=== PATIENT | male | born 1955 | race Caucasian/White ===

== ENCOUNTER 2017-01-30 13:32 | Inpatient (IN) ==
[2017-01-30] MEDS ORDERED: Naloxone 0.4 MG/ML INJ IVP PRN (18:13)
[2017-01-30] MEDS ORDERED: Acetaminophen 325 MG TABLET PO PRN (18:13)
[2017-01-30] MEDS ORDERED: Ondansetron 4 MG/2 ML VIAL IVP PRN (18:13)
[2017-01-30] MEDS ORDERED: *HR* Morphine 2 MG/ML SYRINGE IVP PRN (18:13)
--- NOTE | 2017-01-30 18:31 | Internal Med History&Physical ---
Date of Encounter: 01/30/17 Time of Encounter: 17:30 Assessment and Plan (1) Atrial fibrillation with rapid ventricular response Current visit: Yes Status: Acute New onset supraventricular arrhythmia. Review of EKG shows somewhat irregular tachycardia with ?aberrant conduction, responded to 10mg IV Cardizem push in the ER with conversion to NSR, but reverted to RVR and has been started on IV Cardizem drip; continue for now with titration to maintain HR below 110. Restart home dose of Metoprolol. Patient is currently in and out of sinus rhythm ,. Continue Telemetry monitoring and cycle Troponins. Echocardiogram from December 2016 shows EF 40-45%, mildly dilated LV and LA, global LV hypokinesis with regional variations. Will hold off on anticoagulation at this time in light of ongoing issues with anemia. Cardiology consult. Reviewed records from [facility] where patient was hospitalized on due to respiratory acidosis and failure, requiring intubation, lactic acidosis, shock requiring vasopressors, severe anemia (Hb dropped from 7.9 to 6.5 and he received PRBC transfusion). All of this improved and he was extubated , was recommended EGD/Colonoscopy by GI, and he left [facility] wanting to f/up as outpatient with GI. (2) Anemia Current visit: Yes Status: Chronic Previous iron profile c/w iron deficiency anemia; according to previous notes, he underwent EGD, Colonoscopy, capsule endoscopy, RBC nuclear scan with no source of GI bleed identified. Patient may benefit from Hematology evaluation. Hb is currently stable, around 8.5; Continue ferrous sulfate supplements. Qualifiers: Anemia type: iron deficiency Qualified Code(s): D50.9 - Iron deficiency anemia, unspecified (3) BPH (benign prostatic hyperplasia) Current visit: Yes Status: Chronic continue Flomax and Proscar; Qualifiers: Lower urinary tract symptom presence: symptoms present Lower urinary tract symptom detail: unspecified Qualified Code(s): N40.1 - Benign prostatic hyperplasia with lower urinary tract symptoms (4) CHF (congestive heart failure) Current visit: Yes Status: Chronic continue beta sung and diuretics and low dose ACEI; monitor BP closely; Qualifiers: Congestive heart failure type: combined Congestive heart failure chronicity : chronic Qualified Code(s): I50.42 - Chronic combined systolic (congestive) and diastolic (congestive) heart failure (5) COPD (chronic obstructive pulmonary disease) Current visit: Yes Status: Chronic Noted to have mild wheezing; continue Symbicort, scheduled bronchodilators and supplemental O2, noted to be on 4L/min NC at home; Qualifiers: COPD type: unspecified COPD Qualified Code(s): J44.1 - Chronic obstructive pulmonary disease with (acute) exacerbation (6) HTN (hypertension) Current visit: Yes Status: Chronic Qualifiers: Hypertension type: essential hypertension Qualified Code(s): I10 - Essential (primary) hypertension (7) CAD (coronary artery disease) Current visit: Yes Status: Chronic h/o- stents in the past; continue Plavix, beta sung and statin; Qualifiers: Coronary Disease-Associated Artery/Lesion type: [place] artery [place] vs. transplanted heart: [place] heart Associated angina: without angina Qualified Code(s): I25.10 - Atherosclerotic heart disease of [place] coronary artery without angina pectoris (8) Abdominal aortic aneurysm Current visit: Yes Status: Chronic Qualifiers: Presence of rupture: without rupture Qualified Code(s): I71.4 - Abdominal aortic aneurysm, without rupture (9) Tobacco abuse Current visit: Yes Status: Chronic Smoking cessation discussed, patient reports trying to cut down but not motivated to quit smoking at this time; start Nicotine transdermal patch; Internal Medicine - H&P: HPI Chief complaint: SOB Admitted From: Emergency Dept Plans for Post Hospital Care: Home History of present illness: Mr. Romo is a 61 year old male with h/o- CHF, COPD on home O2, was sent from [place] ER for evaluation of new onset atrial fibrillation. Patient is not a good historian, unable to report specific details regarding his complaints and medical history, which is obtained from review of previous medical records. Patient was at his routine pain management appointment earlier today where he had sudden onset of diaphoresis, dizziness and feeling sick. No syncope, palpitations, chest pain, vomiting reported. He did have some associated shortness of breath, no cough or wheezing per patient. Of note, he was found down at home last Saturday, when he was intubated and air lifted to [facility], where he was extubated and subsequently signed out AMA. Past Med Surg Social Fam HX - Past Medical History Medical history: aortic aneurysm, cardiomyopathy, CHF, COPD, coronary artery disease, GI bleed, hyperlipidemia, hypertension, myocardial infarction, other Psychiatric history: no psych history - Past Surgical History Surgical History: angioplasty/stent - Social History Smoking Status: Current every day smoker Packs per day: 1 Smokeless Tobacco Status: No Alcohol use: none Drug use: none Occupational status: disabled Current living situation: Home Activity Level: Independent ambulation Recent Out of Country Travel Within the Last 8 Weeks: No - Family History Father Family Member Ethnicity: Non- Living Status: Cause of : HEART ATTACK Hx Family Cardiac Disorders: Yes Hx Family Respiratory Disorders: No Hx Family Cancer: No Hx Family GI Disorders: No Hx Family Endocrine Disorder: No Hx Family Neuromuscular Disorders: No Hx Family Neurologic Disorders: No Hx Family HEENT Disorders: No Hx Family Autoimmune Disorders: No Mother Family Member Ethnicity: Non- Living Status: Cause of : HEART ATTACK Hx Family Cardiac Disorders: Yes Hx Family Respiratory Disorders: Yes (emphesyma) Hx Family Cancer: No Hx Family GI Disorders: No Hx Family Endocrine Disorder: Yes Hx Family Neuromuscular Disorders: No Hx Family Neurologic Disorders: No Hx Family HEENT Disorders: No Hx Family Autoimmune Disorders: No Internal Medicine - H&P: Meds Albuterol Sulfate [Ventolin Hfa] 2 puff IH Q4HR PRN 01/30/17 [History] Atorvastatin [Lipitor] 40 mg PO HS 01/30/17 [History] Cetirizine HCl [Zyrtec] 10 mg PO DAILY 01/30/17 [History] Clopidogrel [Plavix] 75 mg PO DAILY 01/30/17 [History] DULoxetine [Cymbalta] 30 mg PO DAILY 01/30/17 [History] Ferrous Sulfate [Iron] 325 mg PO TID 01/30/17 [History] Finasteride [Proscar] 5 mg PO DAILY 01/30/17 [History] Fluticasone/Salmeterol [Advair 500-50 Diskus] 1 each IH BID 01/30/17 [History] Guaifenesin [Mucinex] 600 mg PO BID 01/30/17 [History] Ipratropium/Albuterol Neb [Duoneb] 3 ml IH Q6HR 01/30/17 [History] Lisinopril 2.5 mg PO DAILY 01/30/17 [History] Metoprolol Succinate 100 mg PO DAILY 01/30/17 [History] Omeprazole 20 mg PO DAILY 01/30/17 [History] Oxycodone HCl 10 mg PO Q4H PRN 01/30/17 [History] Oxygen 1 each .ROUTE AD 01/30/17 [History] Pregabalin [Lyrica] 100 mg PO BID 01/30/17 [History] Primidone [Mysoline] 250 mg PO BID 01/30/17 [History] Roflumilast [Daliresp] 500 mcg PO DAILY 01/30/17 [History] Ropinirole HCl [Requip] 2 mg PO HS 01/30/17 [History] Spironolactone [Aldactone] 12.5 mg PO BID 01/30/17 [History] Tamsulosin [Flomax] 0.8 mg PO DAILY 01/30/17 [History] Tizanidine HCl [Zanaflex] 4 mg PO BID 01/30/17 [History] Allergies No Known Allergies Allergy (Verified 01/06/17 21:32) All Systems PM: A 10-system review of systems was performed and is negative for pertinent findings except as documented above in the HPI. - Constitutional Constitutional: no chills, no fever(s), no night sweats - EENT Eyes: no change in vision, no discharge, no pain, no photophobia Ears: no ear discharge, no ear pain, no tinnitus Nose, mouth and throat: no dysphagia, no nasal discharge, no neck pain, no sore throat - Cardiovascular Cardiovascular ROS IM: lightheadedness, no chest pain, no diaphoresis, no dyspnea, no palpitations, no syncope - Respiratory Respiratory: dyspnea on exertion - Gastrointestinal Gastrointestinal: nausea, no abdominal pain, no diarrhea, no hematemesis, no hematochezia, no melena, no vomiting - Musculoskeletal Musculoskeletal ROS IM: no numbness, no tingling - Integumentary Integumentary IM: no rash, no unusual bruising - Neurological Neurological ROS: no confusion, no convulsions, no focal weakness, no numbness, no tingling, no tremor(s) - Hematologic/Lymphatic Hematologic/Lymphatic: no easy bruising - Constitutional Vitals: Temp Pulse Resp BP Pulse Ox 98.1 F 72 16 117/78 100 01/30/17 15:15 01/30/17 16:28 01/30/17 16:28 01/30/17 16:28 01/30/17 16:28 General appearance: Present: A&O X 3, answers questions appropriately (unable to report complete medical history) - Respiratory Respiratory exam: Present: decreased breath sounds (B/L decreased air entry), wheezes (end-expiratory wheezing B/L posterior lay). Absent: accessory muscle use, rales, rhonchi - Cardiovascular Cardiovascular exam: Present: irregular rhythm, +S1, +S2. Absent: diastolic murmur, gallop, rubs, systolic murmur - GI/Abdominal GI/Abdominal exam: Present: normal bowel sounds, soft, no peritoneal signs. Absent: distended, tenderness - Extremities Exam Extremities exam: Present: full ROM, pedal edema (trace ankle and lower leg edema), warm, radial pulses palpable and symetrical. Absent: calf tenderness, cyanotic - Neurological Exam Neurological exam: Present: CN II-XII intact, oriented X3, no focal deficits. Absent: pronater drift, facial droop, speech deficit - Skin Skin exam: Present: dry, intact Internal Med - H&P Results - Labs CBC & Chem 7: 01/31/17 00:29 01/31/17 00:29 - EKG Data -: EKG Interpreted by Myself Rate: tachycardia (initial EKG with atrial flutter with RVR at 168bpm, PVCs, multiple premature SV complexes)
[2017-01-30 20:05] LABS: Chol/HDL Ratio 2.8 (0-4.9)
[2017-01-30] MEDS: Budesonide/Formoterol 160/4.5 MDI IH SCH (20:13)
[2017-01-30] MEDS: Ipratropium/Albuterol Neb 3 ML IH SCH ×2 (20:13→23:38)
[2017-01-30] MEDS: Pregabalin 50 MG CAPSULE PO SCH (20:52)
[2017-01-30] MEDS: tiZANidine 4 MG TABLET PO SCH (20:52)
[2017-01-30] MEDS ORDERED: rOPINIRole 1 MG TABLET PO SCH (21:00)
[2017-01-31 00:52] LABS: Basophils % 0.2 %; Hemoglobin 8.3 g/dL (12.9-16.9); Platelet Count 166 K/mcL (140-400)
[2017-01-31 00:54] LABS: Eosinophils # 0.1 K/mcL (0.0-0.6); Eosinophils % 1.3 %; Hematocrit 29.7 % (37.5-50.1); Immature Granulocytes % 0.8 % (0-4); Immature Platelets 13.2 % (1.1-6.1); Lymphocytes # 0.9 K/mcL (0.6-4.6); Lymphocytes % 16.6 %; Mean Corpuscular HGB Conc 27.9 g/dL (31.6-35.5); Mean Corpuscular Hemoglobin 23.7 pg (28.0-33.3); Mean Corpuscular Volume 84.9 fL (83.0-100.0); Mean Platelet Volume 12.9 fL (9.4-12.4); Monocytes # 0.5 K/mcL (0.0-1.3); Monocytes % 10.1 %; Neutrophils # 3.7 K/mcL (1.6-8.9); Nucleated Red Blood Cells 0.6 /100 WBC (0); Red Cell Distribution Width 23.1 % (11.5-14.5)
[2017-01-31 01:03] LABS: BUN/Creatinine Ratio 14 (6-26); Blood Urea Nitrogen 11 mg/dL (8-26); Calcium 8.2 mg/dL (8.6-10.8); Carbon Dioxide 37 mEq/L (19-29); Chloride 103 mEq/L (98-109); Glucose 160 mg/dL (70-99); Osmolality,Calculated 301 (280-300); Potassium 3.8 mEq/L (3.5-4.5); Sodium 144 mEq/L (136-145); eGFR For African Americans > 60 (> 60); eGFR For Non-African Americans > 60 (> 60)
[2017-01-31 01:24] LABS: Anisocytosis 3+ (Not Present); Microcytosis Present (Not Present)
[2017-01-31 01:25] LABS: Platelet Estimate Normal (Normal)
[2017-01-31] MEDS: Ipratropium/Albuterol Neb 3 ML IH SCH ×2 (04:24→07:45)
[2017-01-31] MEDS: Budesonide/Formoterol 160/4.5 MDI IH SCH (07:45)
[2017-01-31] MEDS ORDERED: (Roflumilast [Daliresp] 500 MCG) PO SCH (09:00)
[2017-01-31] MEDS ORDERED: Finasteride 5 MG TABLET PO SCH (09:00)
[2017-01-31] MEDS ORDERED: Ipratropium/Albuterol Neb 3 ML IH PRN (09:34)
[2017-01-31] MEDS: tiZANidine 4 MG TABLET PO SCH (09:39)
[2017-01-31] MEDS: *HR* OxyCODONE Immed Rel 5 MG TABLET PO PRN ×3 (09:40→16:52)
[2017-01-31] MEDS: Pregabalin 50 MG CAPSULE PO SCH (09:40)
--- NOTE | 2017-01-31 12:23 | Cardiology Consult Note ---
Date of Encounter: 01/31/17 Time of Encounter: 10:30 Assessment and Plan (1) Paroxysmal a-fib Current Visit: Yes Status: Acute Patient seen to have PAF on telemetry. No previous history. He is asymptomatic. Initial EKG reviewed with Dr. Thorpe. Tachyarrythmia with HR 168 bpm. 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 Resolved with IV cardizem bolus. Repeat EKG shows SR with PAC with RBBB. Telemetry review shows NSR with PAC. Runs of SVT and periods of PAF also seen. Currently SR with PVC. Recent holter monitor 12/2016- showed SR with frequent PAC and small brief runs of NSVT, longest being 5 beats. TTE 01/07/17- EF 40-45%. Global and segmental wall motion variations. No significant valvular disease. Check TSH. Continue beta-sung. Switch back to metoprolol succinate from metoprolol tartrate. Hold lisinopril if needed to allow room for rate controlling medications. In regards to anticoagulation he is not a good candidate due to history of anemia requiring blood transfusion. Most recent blood transfusion was [place]/25/17 [place] [facility] GI work-up was recommended at that time but was not completed. Recommend starting asa when felt to be safe from a GI standpoint. (2) Elevated troponin I level Current Visit: No Status: Acute Mild flat troponin elevation. Demand ischemia in the setting of tachy arrhythmia. (3) Cardiomyopathy, ischemic Current Visit: No Status: Acute H/o ICMP. EF 40-45% on last TTE. [facility] 01/12/15- patent stent in th LCX artery. 100% stenosis in the dRCA, 89% stenosis in the prox-mid RCA. Unsuccessful attempt at PCI to STRAINER TENDER of RCA. Currently euvolemic. Change metoprolol tartrate back to metoprolol succinate. Currently on zestril. Low sodium diet, Strict I&O, and daily weights. Continue asa, statin and bb. Discussion w patient/family: The assessment and plan as outlined above was discussed with the patient and/or family members who expressed understanding and agreement. All questions were answered. Thank you for involving us in the care of your patient. Please call with any questions. History of Present Illness Consult date: 01/31/17 Requesting physician: Juanita Irwin Consult reason: atrial fibrillation/ atrial tachycardia Chief complaint: weakness, diaphoresis History of present illness: Mr. Romo is a 61 year old male with a history of CAD s/p PCI, ischemic cardiomyoapthy EF 45%, COPD on home O2, and chronic anemia who presents with weakness and diaphoresis. Reports a long history of anemia requiring blood transfusion. His symptoms were similar to when he had severe anemia in the past. On presentation to the ED he was found to have tachycardia, HR up to 168 bpm. He was given cardizem IV and converted to NSR with PAC. Seen to have PAF overnight. He denies history of arrhythmia. Denies palpitations or chest pain. SOB was at baseline. He was recently hospitalized 01/27 at [facility] after being found unresponsive. He was treated for severe hypotension, respiratory failure and anemia (hgb 6.8) requiring blood transfusion. He was recommended for repeat GI evaluation but left AMA. Hgb 8.3 today. Past Med Surg Social Fam HX - Past Medical History Medical history: aortic aneurysm, cardiomyopathy, CHF, COPD, coronary artery disease, GI bleed, hyperlipidemia, hypertension, myocardial infarction, other Psychiatric history: no psych history - Past Surgical History Surgical History: angioplasty/stent - Social History Smoking Status: Current every day smoker Packs per day: 1 Smokeless Tobacco Status: No Alcohol use: none Drug use: none - Family History Father Family Member Ethnicity: Non- Living Status: Cause of : HEART ATTACK Hx Family Cardiac Disorders: Yes Hx Family Respiratory Disorders: No Hx Family Cancer: No Hx Family GI Disorders: No Hx Family Endocrine Disorder: No Hx Family Neuromuscular Disorders: No Hx Family Neurologic Disorders: No Hx Family HEENT Disorders: No Hx Family Autoimmune Disorders: No Mother Family Member Ethnicity: Non- Living Status: Cause of : HEART ATTACK Hx Family Cardiac Disorders: Yes Hx Family Respiratory Disorders: Yes (emphesyma) Hx Family Cancer: No Hx Family GI Disorders: No Hx Family Endocrine Disorder: Yes Hx Family Neuromuscular Disorders: No Hx Family Neurologic Disorders: No Hx Family HEENT Disorders: No Hx Family Autoimmune Disorders: No Medications and Allergies Albuterol Sulfate [Ventolin Hfa] 2 puff IH Q4HR PRN 01/30/17 [History] Atorvastatin [Lipitor] 40 mg PO HS 01/30/17 [History] Cetirizine HCl [Zyrtec] 10 mg PO DAILY 01/30/17 [History] Clopidogrel [Plavix] 75 mg PO DAILY 01/30/17 [History] DULoxetine [Cymbalta] 30 mg PO DAILY 01/30/17 [History] Ferrous Sulfate [Iron] 325 mg PO TID 01/30/17 [History] Finasteride [Proscar] 5 mg PO DAILY 01/30/17 [History] Fluticasone/Salmeterol [Advair 500-50 Diskus] 1 each IH BID 01/30/17 [History] Guaifenesin [Mucinex] 600 mg PO BID 01/30/17 [History] Ipratropium/Albuterol Neb [Duoneb] 3 ml IH Q6HR 01/30/17 [History] Lisinopril 2.5 mg PO DAILY 01/30/17 [History] Metoprolol Succinate 100 mg PO DAILY 01/30/17 [History] Omeprazole 20 mg PO DAILY 01/30/17 [History] Oxycodone HCl 10 mg PO Q4H PRN 01/30/17 [History] Oxygen 1 each .ROUTE AD 01/30/17 [History] Pregabalin [Lyrica] 100 mg PO BID 01/30/17 [History] Primidone [Mysoline] 250 mg PO BID 01/30/17 [History] Roflumilast [Daliresp] 500 mcg PO DAILY 01/30/17 [History] Ropinirole HCl [Requip] 2 mg PO HS 01/30/17 [History] Spironolactone [Aldactone] 12.5 mg PO BID 01/30/17 [History] Tamsulosin [Flomax] 0.8 mg PO DAILY 01/30/17 [History] Tizanidine HCl [Zanaflex] 4 mg PO BID 01/30/17 [History] Allergies No Known Allergies Allergy (Verified 01/06/17 21:32) All Systems Review: A 10-system review of systems was performed and is negative for pertinent findings except as documented above in the HPI. Physical Examination Vital Signs, Last 4 Hours Temp Pulse Resp BP Pulse Ox 01/31/17 11:07 98.0 F 66 18 106/61 98 01/31/17 09:50 96 General: Conversant, No Apparent Distress HEENT: Atraumatic, Normocephaly, Mucus Membranes Moist Neck: No JVD, Normal carotid pulses Cardiac: Reg Rate and Rhythm, Normal S1 and S2, No Murmur, Other (SR with PAC and runs of SVT on telemetry. ) Lungs: Normal Breath Sounds, No Wheeze, Rales, Rhonchi Neuro: Alert and responsive, No focal deficits noted Abdomen: Soft, Non-Tender Skin: No rashes noted on visualized skin Musculoskeletal: No Chest Wall Tenderness Extremities: No Clubbing, No Cyanosis, No Edema, Normal Pulses Results 01/31/17 00:29 01/31/17 00:29 Lab Results 01/30/17 01/31/17 01/31/17 18:52 00:29 00:29 WBC 5.2 Hgb 8.3 L Hct 29.7 L Plt Count 166 Sodium Potassium Chloride Carbon Dioxide BUN Creatinine Glucose Calcium Troponin I 0.05 H* 0.04 H* 01/31/17 01/31/17 00:29 06:32 WBC Hgb Hct Plt Count Sodium 144 Potassium 3.8 Chloride 103 Carbon Dioxide 37 H BUN 11 Creatinine 0.80 Glucose 160 H Calcium 8.2 L Troponin I 0.04 H* - Imaging and Cardiology Echo: report reviewed - EKG Interpretation EKG results cardiology: personally reviewed (ST poss AVNRT, HR 168 bpm on admission. No acute ST changes. Repeat EKG shows SR with frequent PAC.) Consult Discharge Plan - Plan Referrals: Bautista Chew MD [Primary Care Provider] -
[2017-01-31] MEDS ORDERED: predniSONE 20 MG TABLET PO SCH (13:15)
--- NOTE | 2017-01-31 14:09 | Physician Discharge Referral ---
Home Health/Hosp Referral Info Transfer to: Home Health Attending Provider: Dr. Alberto Yip Provider in Charge Post Discharge: PCP - Diagnosis (1) Paroxysmal a-fib Priority: Primary Status: Chronic (2) Anemia Priority: Secondary Status: Chronic (3) CAD (coronary artery disease) Priority: Secondary Status: Chronic (4) CHF (congestive heart failure) Priority: Secondary Status: Chronic (5) COPD (chronic obstructive pulmonary disease) Priority: Secondary Status: Chronic (6) HTN (hypertension) Priority: Secondary Status: Chronic (7) Tobacco abuse Priority: Secondary Status: Chronic - Respiratory Orders Oxygen / L per min (2) Smoking Cessation: Smoking cessation has been advised. For more information, call the [place] Tobacco Quit Line at 1-222-MZFK-NOW. - Diet/Nutrition Diet/Nutrition Orders: No Added Salt (BRIANA), Cardiac - Activity Activity Orders: Up ad lakesha, Ambulate, Chair - Services Needed Following services are medically necessary services: Physical Therapy - Transfer Medications Prescriptions: Doxycycline 100 mg PO Q12H #10 predniSONE [PredniSONE] 40 mg PO DAILY 5 Days Home Medications: Albuterol Sulfate [Ventolin Hfa] 2 puff IH Q4HR PRN 01/30/17 [History] Atorvastatin [Lipitor] 40 mg PO HS 01/30/17 [History] Cetirizine HCl [Zyrtec] 10 mg PO DAILY 01/30/17 [History] DULoxetine [Cymbalta] 30 mg PO DAILY 01/30/17 [History] Ferrous Sulfate [Iron] 325 mg PO TID 01/30/17 [History] Finasteride [Proscar] 5 mg PO DAILY 01/30/17 [History] Fluticasone/Salmeterol [Advair 500-50 Diskus] 1 each IH BID 01/30/17 [History] Guaifenesin [Mucinex] 600 mg PO BID 01/30/17 [History] Ipratropium/Albuterol Neb [Duoneb] 3 ml IH Q6HR 01/30/17 [History] Lisinopril 2.5 mg PO DAILY 01/30/17 [History] Metoprolol Succinate 100 mg PO DAILY 01/30/17 [History] Omeprazole 20 mg PO DAILY 01/30/17 [History] Oxycodone HCl 10 mg PO Q4H PRN 01/30/17 [History] Oxygen 1 each .ROUTE AD 01/30/17 [History] Pregabalin [Lyrica] 100 mg PO BID 01/30/17 [History] Primidone [Mysoline] 250 mg PO BID 01/30/17 [History] Roflumilast [Daliresp] 500 mcg PO DAILY 01/30/17 [History] Ropinirole HCl [Requip] 2 mg PO HS 01/30/17 [History] Tamsulosin [Flomax] 0.8 mg PO DAILY 01/30/17 [History] Doxycycline 100 mg PO Q12H #10 01/31/17 [Rx] Spironolactone [Aldactone] 12.5 mg PO DAILY #0 01/31/17 [Rx] Tizanidine HCl [Zanaflex] 4 mg PO BID PRN #0 01/31/17 [Rx] predniSONE [PredniSONE] 40 mg PO DAILY 5 Days 01/31/17 [Rx] Allergies/Adverse Reactions: Allergies No Known Allergies Allergy (Verified 01/06/17 21:32) Certification: Further, I certify that my clinical findings support that this patient is homebound (i.e. absences from home require considerable and taxing effort and are for medical reasons or sabianism services or infrequently or short duration when for other reasons) because: Homebound Reason: Patient requires assistance of a person or device to safely leave home, Leaving home requires considerable and taxing effort due to condition Attestation: My signature below is to certify that this patient is under my care and that I, or nurse practitioner, or a physician's group fitness assistant department head working with me, has a face-to -face encounter with this patient.
--- NOTE | 2017-01-31 14:15 | Electrocardiograph Report ---
[place] [id number] Test Date: 2017-01-31 Pat Name: Rito Romo Department: 111 Room: 2NE28 Gender: M [employer] Aircraft Mechanic: [facility] : 1955 Requested By: Alberto Yip Order Number: [id number] Reading MD: Juliocesar Lux Measurements Intervals [place] Rate: 69 P: 81 [place]: 132 QRS: 81 QRSD: 125 T: 62 QT: 424 QTc: 443 Interpretive Statements SINUS RHYTHM WITH OCCASIONAL SUPRAVENTRICULAR PREMATURE COMPLEXES POSSIBLE LEFT ATRIAL ENLARGEMENT RIGHT BUNDLE BRANCH BLOCK Electronically Signed On 01-31-2017 14:13:15 EDT by Juliocesar Lux
--- NOTE | 2017-01-31 14:15 | Discharge Summary ---
Date of Encounter: 01/31/17 Time of Encounter: 14:13 - Discharge Diagnosis (1) Paroxysmal a-fib Priority: Primary Status: Chronic (2) Anemia Priority: Secondary Status: Chronic Qualifiers: Anemia type: iron deficiency Iron deficiency anemia type: unspecified iron deficiency Qualified Code(s): D50.9 - Iron deficiency anemia, unspecified (3) CAD (coronary artery disease) Priority: Secondary Status: Chronic Qualifiers: Coronary Disease-Associated Artery/Lesion type: [place] artery [place] vs. transplanted heart: [place] heart Associated angina: without angina Qualified Code(s): I25.10 - Atherosclerotic heart disease of [place] coronary artery without angina pectoris (4) CHF (congestive heart failure) Priority: Secondary Status: Chronic Qualifiers: Congestive heart failure type: combined Congestive heart failure chronicity : chronic Qualified Code(s): I50.42 - Chronic combined systolic (congestive) and diastolic (congestive) heart failure (5) COPD (chronic obstructive pulmonary disease) Priority: Secondary Status: Chronic Qualifiers: COPD type: COPD with acute exacerbation Qualified Code(s): J44.1 - Chronic obstructive pulmonary disease with (acute) exacerbation (6) HTN (hypertension) Priority: Secondary Status: Chronic Qualifiers: Hypertension type: essential hypertension Qualified Code(s): I10 - Essential (primary) hypertension (7) Tobacco abuse Priority: Secondary Status: Chronic - Discharge Medications Prescriptions: Doxycycline 100 mg PO Q12H #10 predniSONE [PredniSONE] 40 mg PO DAILY 5 Days Home Medications: Albuterol Sulfate [Ventolin Hfa] 2 puff IH Q4HR PRN 01/30/17 [History] Atorvastatin [Lipitor] 40 mg PO HS 01/30/17 [History] Cetirizine HCl [Zyrtec] 10 mg PO DAILY 01/30/17 [History] DULoxetine [Cymbalta] 30 mg PO DAILY 01/30/17 [History] Ferrous Sulfate [Iron] 325 mg PO TID 01/30/17 [History] Finasteride [Proscar] 5 mg PO DAILY 01/30/17 [History] Fluticasone/Salmeterol [Advair 500-50 Diskus] 1 each IH BID 01/30/17 [History] Guaifenesin [Mucinex] 600 mg PO BID 01/30/17 [History] Ipratropium/Albuterol Neb [Duoneb] 3 ml IH Q6HR 01/30/17 [History] Lisinopril 2.5 mg PO DAILY 01/30/17 [History] Metoprolol Succinate 100 mg PO DAILY 01/30/17 [History] Omeprazole 20 mg PO DAILY 01/30/17 [History] Oxycodone HCl 10 mg PO Q4H PRN 01/30/17 [History] Oxygen 1 each .ROUTE AD 01/30/17 [History] Pregabalin [Lyrica] 100 mg PO BID 01/30/17 [History] Primidone [Mysoline] 250 mg PO BID 01/30/17 [History] Roflumilast [Daliresp] 500 mcg PO DAILY 01/30/17 [History] Ropinirole HCl [Requip] 2 mg PO HS 01/30/17 [History] Tamsulosin [Flomax] 0.8 mg PO DAILY 01/30/17 [History] Doxycycline 100 mg PO Q12H #10 01/31/17 [Rx] Spironolactone [Aldactone] 12.5 mg PO DAILY #0 01/31/17 [Rx] Tizanidine HCl [Zanaflex] 4 mg PO BID PRN #0 01/31/17 [Rx] predniSONE [PredniSONE] 40 mg PO DAILY 5 Days 01/31/17 [Rx] Allergies/Adverse Reactions: Allergies No Known Allergies Allergy (Verified 01/06/17 21:32) Procedures/tests Complete & Pending: Procedures Performed prior 72 hours Category Date Time Status ECG 12 lead ECG [ECG] Routine Y 01/31/17 00:56 Completed - Notes to Outpatient Provider 1. Needs further workup of anemia. Plavix discontinued on discharge until etiology of anemia has been determined. Date of admission: 01/31/17 06:23 Primary care physician: Bautista Chew MD Consults: 01/30/17 16:35 Consult to [facility] [CONS] Routine Reason for SW Consult: CURRENT [facility] 01/30/17 18:29 Consult to Cardiology [CONS] Routine Comment: Consulting Provider: Larissa Alarcon Reason for Consult: New onset atrial fibrillation, PVCs Call Completed: No Discharging clinician: Alberto Yip Anticipated date of discharge: 01/31/17 - Patient Status Disposition: Home Health Service Condition: Fair Functional capacity at discharge: uses cane/walker Overall status at discharge: patient is progressing back to baseline - Discharge Instructions Follow Up With: Bautista Chew MD [Primary Care Provider] - - Diet and Activity Activity: as per physical therapy, increase activity as tolerated Diet: low fat, low cholesterol, low salt diet, other (1.5L fluid restriction) Hospital course: Mr. Romo is a 61 year old male with a history of congestive heart failure, COPD on home oxygen was sent from [place] emergency room for evaluation of atrial fibrillation. Apparently, the patient was found down at home last Saturday when he was intubated at [facility]. He was subsequently extubated and the patient signed out AMA according to the records. In the hospital, the patient's atrial fibrillation resolved with Cardizem bolus. The patient has remained sinus rhythm for the hospital stay. Cardiology was consulted. The patient was known to cardiology and they stated that the patient has a history of paroxysmal atrial fibrillation. No further change in medication has been recommended. Cardiology recommended that his blood thinners be held until his etiology of anemia be determined. The patient does have some wheezing and a cough and sputum production. He continues to smoke. He appears to have a mild COPD exacerbation. He is being given prescription for doxycycline and prednisone for his mild COPD exacerbation. Due to his weakness, he is also being referred to home health for physical therapy. Due to his hemoglobin level of 8 and his history of coronary artery disease, he is being transfused 1 unit of packed red blood cells. The patient will be discharged home with home health after he finishes the transfusion of packed blood cells. - Time Spent with Patient Total time spent providing and/or coordinating discharge services: Greater than 30 minutes (40) - Constitutional Vitals: Temp Pulse Resp BP Pulse Ox 98.0 F 66 12 106/61 100 01/31/17 11:07 01/31/17 11:07 01/31/17 12:17 01/31/17 11:07 01/31/17 12:17 General appearance: Present: A&O X 3, answers questions appropriately (unable to report complete medical history) Exam: Gen.: Lying in bed. No acute distress. Chest: Clear to auscultation bilaterally. No adventitious sounds present. CVS: First and second heart sounds present. No murmurs, rubs or gallops.
[2017-01-31] MEDS ORDERED: 0.9 % Sodium Chloride 250 ML ONE (15:58)
[2017-01-31] MEDS ORDERED: Furosemide 40 MG/4 ML VIAL IVP ONE (17:00)
[2017-01-31 18:58] VITALS: BP 142/88
[2017-01-31] MEDS ORDERED: Doxycycline 100 MG CAPSULE PO SCH (19:00)
[2017-01-31] MEDS ORDERED: Metoprolol XL (24 HR) Succ 50 MG TAB.ER.24H PO SCH (21:00)
[2017-02-01] MEDS ORDERED: Metoprolol XL (24 HR) Succ 50 MG TAB.ER.24H PO SCH (09:00)
== END 2017-01-31 19:15 | disposition home health service (06) | DRG 309 ==
LOC: 2NENU
PROVIDERS: ADMIT Internal Medicine; ATTEND Internal Medicine Sleep Medicine

== ENCOUNTER 2017-02-10 03:02 | Inpatient (IN) ==
[2017-02-10] MEDS ORDERED: 0.9 % Sodium Chloride 1,000 ML ONE (07:27)
[2017-02-10] MEDS ORDERED: Lacri-Lube 3.5 GM TUBE BOTH EYES PRN (08:07)
[2017-02-10] MEDS: Ipratropium/Albuterol Neb 3 ML IH SCH ×4 (08:21→19:48)
[2017-02-10] MEDS: Budesonide/Formoterol 160/4.5 MDI IH SCH ×2 (08:24→19:48)
[2017-02-10 08:34] LABS: Basophils % 0.2 %; Hemoglobin 10.2 g/dL (12.9-16.9); Immature Granulocytes % 0.6 % (0-4); Lymphocytes # 0.7 K/mcL (0.6-4.6); Lymphocytes % 13.5 %; Mean Corpuscular HGB Conc 26.8 g/dL (31.6-35.5); Mean Corpuscular Hemoglobin 25.7 pg (28.0-33.3); Monocytes # 0.3 K/mcL (0.0-1.3); Monocytes % 6.4 %; Red Blood Count 3.97 M/mcL (4.19-5.50); Red Cell Distribution Width 23.5 % (11.5-14.5); Segmented Neutrophils % 79.3 %
[2017-02-10 08:37] LABS: Mean Corpuscular Volume 95.7 fL (83.0-100.0); Platelet Count 79 K/mcL (140-400)
[2017-02-10 08:39] LABS: ABG Base Excess 30.4 mEq/L (-2.0 to 3.0); ABG HCO3 59.8 mEQ/L (21-27); ABG Oxygen Saturation 94 % (95-98); ABG PH 7.45 pH Units (7.32-7.45); ABG PO2 67 mmHg (85-104); ABG TCO2 62.4 mEq/L (20-26)
[2017-02-10 08:44] LABS: ABG PCO2 86 mmHg (35-45); Blood Gas FiO2 40 %
[2017-02-10 08:51] LABS: Alanine Aminotransferase 16 Units/L (0-55); Albumin 2.9 g/dL (3.5-5.0); Albumin/Globulin Ratio 1.1 (1.1-2.2); Alkaline Phosphatase 60 Units/L (38-126); Aspartate Amino Transferase 13 Units/L (5-34); BUN/Creatinine Ratio 18 (6-26); Bilirubin,Total 0.3 mg/dL (0.2-1.2); Blood Urea Nitrogen 12 mg/dL (8-26); Chloride 94 mEq/L (98-109); Globulin 2.7 g/dL (2.4-3.5); Glucose 110 mg/dL (70-99); Osmolality,Calculated 302 (280-300); Sodium 146 mEq/L (136-145); Total Protein 5.6 g/dL (6.0-8.3); eGFR For African Americans > 60 (> 60); eGFR For Non-African Americans > 60 (> 60)
[2017-02-10 08:53] LABS: Carbon Dioxide 48 mEq/L (19-29)
[2017-02-10] MEDS ORDERED: Levofloxacin 500 MG/100 ML 500 MG/100 ML BAG IVPB SCH (09:00)
[2017-02-10 09:09] LABS: Anisocytosis 2+ (Not Present)
[2017-02-10 09:13] LABS: Basophilic Stippling 1+ (Not Present); Platelet Estimate Decreased (Normal); Polychromasia 1+ (Not Present)
[2017-02-10] MEDS: Chlorhexidine Rinse 15 ML MOUTHWASH MM SCH ×2 (09:14→20:38)
[2017-02-10] MEDS: Pantoprazole 40 MG VIAL IVP SCH (09:14)
--- NOTE | 2017-02-10 09:14 | Pulmonology History & Physical ---
Date of Encounter: 02/10/17 Time of Encounter: 09:13 Assessment and Plan (1) Acute exacerbation of chronic obstructive pulmonary disease (COPD) Current visit: No Status: Acute Patient appears to be in acute COPD exacerbation. Chest x-ray is not impressive for pneumonia, however there may be an underlying bronchitis. Blood cultures have been obtained, we will obtain sputum culture, strep, legionella antigens. Patient is intubated on mechanical ventilation and tolerating this well. We will treat with Solu-Medrol 60 mg every 6 hours, DuoNeb every 4 hours , and Levaquin 500 milligrams for 5 days. ABG shows a chronic hypercapnia with a normal pH since being on the ventilator. Continue with mechanical ventilation. Patient is on propofol sedation and is awake but comfortable. Patient takes oxycodone at home for pain, will use IV fentanyl as needed for pain control. Patient has a history of systolic heart failure. Does not appear to be in acute exacerbation of heart failure. We will hold off on further IV fluids. No indication for diuresis at this time. Patient is on adequate DVT and GI prophylaxis. We will initiate tube feeds. (2) Cardiomyopathy, ischemic Current visit: No Status: Acute (3) Anemia Current visit: No Status: Chronic Qualifiers: Anemia type: iron deficiency Iron deficiency anemia type: unspecified iron deficiency Qualified Code(s): D50.9 - Iron deficiency anemia, unspecified (4) HTN (hypertension) Current visit: No Status: Chronic Qualifiers: Hypertension type: essential hypertension Qualified Code(s): I10 - Essential (primary) hypertension History of Present Illness Chief complaint: Dyspnea HPI: Mr. Romo is a 61 year old male with history of severe COPD, systolic heart failure who presented to the emergency department with shortness of breath. At the time I examined the patient was intubated and sedated so the history is obtained from the medical record. Patient was apparently complaining of shortness of breath and was found to have an oxygen saturation in the 80s. On transport to the hospital patient became more somnolent. Patient was apparently saying he did not want to be intubated but was "not refusing it." Patient's status continued to decline so he was intubated. Past Med Surg Social Fam HX - Past Medical History Medical history: aortic aneurysm, cardiomyopathy, CHF, COPD, coronary artery disease, GI bleed, hyperlipidemia, hypertension, myocardial infarction, other Psychiatric history: no psych history - Past Surgical History Surgical History: angioplasty/stent - Social History Smoking Status: Current every day smoker Packs per day: 1/2 ppd Smokeless Tobacco Status: No Alcohol use: none Drug use: none - Family History Father Family Member Ethnicity: Non- Living Status: Hx Family Cardiac Disorders: Yes Hx Family Respiratory Disorders: No Hx Family Cancer: No Hx Family GI Disorders: No Hx Family Endocrine Disorder: No Hx Family Neuromuscular Disorders: No Hx Family Neurologic Disorders: No Hx Family HEENT Disorders: No Hx Family Autoimmune Disorders: No Mother Family Member Ethnicity: Non- Living Status: Hx Family Cardiac Disorders: Yes Hx Family Respiratory Disorders: Yes Hx Family Cancer: No Hx Family GI Disorders: No Hx Family Endocrine Disorder: Yes Hx Family Neuromuscular Disorders: No Hx Family Neurologic Disorders: No Hx Family HEENT Disorders: No Hx Family Autoimmune Disorders: No Medications and Allergies Albuterol Sulfate [Ventolin Hfa] 2 puff IH Q4HR PRN 01/30/17 [History] Atorvastatin [Lipitor] 40 mg PO HS 01/30/17 [History] Cetirizine HCl [Zyrtec] 10 mg PO DAILY 01/30/17 [History] DULoxetine [Cymbalta] 30 mg PO DAILY 01/30/17 [History] Ferrous Sulfate [Iron] 325 mg PO TID 01/30/17 [History] Finasteride [Proscar] 5 mg PO DAILY 01/30/17 [History] Fluticasone/Salmeterol [Advair 500-50 Diskus] 1 each IH BID 01/30/17 [History] Guaifenesin [Mucinex] 600 mg PO BID 01/30/17 [History] Ipratropium/Albuterol Neb [Duoneb] 3 ml IH Q6HR 01/30/17 [History] Lisinopril 2.5 mg PO DAILY 01/30/17 [History] Metoprolol Succinate 100 mg PO DAILY 01/30/17 [History] Omeprazole 20 mg PO DAILY 01/30/17 [History] Oxycodone HCl 10 mg PO Q4H PRN 01/30/17 [History] Oxygen 1 each .ROUTE AD 01/30/17 [History] Pregabalin [Lyrica] 100 mg PO BID 01/30/17 [History] Primidone [Mysoline] 250 mg PO BID 01/30/17 [History] Roflumilast [Daliresp] 500 mcg PO DAILY 01/30/17 [History] Ropinirole HCl [Requip] 2 mg PO HS 01/30/17 [History] Tamsulosin [Flomax] 0.8 mg PO DAILY 01/30/17 [History] Doxycycline 100 mg PO Q12H #10 01/31/17 [Rx] Spironolactone [Aldactone] 12.5 mg PO DAILY #0 01/31/17 [Rx] Tizanidine HCl [Zanaflex] 4 mg PO BID PRN #0 01/31/17 [Rx] predniSONE [PredniSONE] 40 mg PO DAILY 5 Days 01/31/17 [Rx] Allergies No Known Allergies Allergy (Verified 01/06/17 21:32) ROS unobtainable: due to endotracheal tube All Systems: A 10-system review of systems was performed and is negative for pertinent findings except as documented above in the HPI. Physical Examination Vital Signs: Vital Signs, Last 4 Hours Temp Pulse Resp BP Pulse Ox 02/10/17 09:08 77 12 86/50 94 02/10/17 08:17 82 12 99/62 100 02/10/17 07:51 13 100 02/10/17 07:47 98.8 F 85 12 99/60 100 General appearance: no acute distress, comatose ENT: oropharynx moist Effort: normal Auscultation: bilateral: diminished breath sounds, wheezes Cardiovascular: regular rate and rhythm, PVC's noted Gastrointestinal: hypoactive bowel sounds, soft, tender (mild, diffuse) Extremities: no cyanosis, no clubbing, edema (trace) normal mental status Results - Laboratory Findings CBC and BMP: 02/10/17 08:28 02/10/17 08:28 ABG ABG pH 7.45 pH Units (7.32-7.45) 02/10/17 08:30 ABG pCO2 86 mmHg (35-45) H* 02/10/17 08:30 ABG pO2 67 mmHg (85-104) L 02/10/17 08:30 ABG O2 Saturation 94 % (95-98) L 02/10/17 08:30 Abnormal lab findings: Abnormal lab results RBC 3.97 M/mcL (4.19-5.50) L 02/10/17 08:28 Hgb 10.2 g/dL (12.9-16.9) L 02/10/17 08:28 MCH 25.7 pg (28.0-33.3) L 02/10/17 08:28 MCHC 26.8 g/dL (31.6-35.5) L 02/10/17 08:28 RDW 23.5 % (11.5-14.5) H 02/10/17 08:28 Plt Count 79 K/mcL (140-400) L 02/10/17 08:28 ABG pCO2 86 mmHg (35-45) H* 02/10/17 08:30 ABG pO2 67 mmHg (85-104) L 02/10/17 08:30 ABG HCO3 59.8 mEQ/L (21-27) H 02/10/17 08:30 ABG Total CO2 62.4 mEq/L (20-26) H 02/10/17 08:30 ABG O2 Saturation 94 % (95-98) L 02/10/17 08:30 ABG Base Excess 30.4 mEq/L (-2.0 to 3.0) H 02/10/17 08:30 Sodium 146 mEq/L (136-145) H 02/10/17 08:28 Potassium 5.0 mEq/L (3.5-4.5) H 02/10/17 08:28 Chloride 94 mEq/L (98-109) L 02/10/17 08:28 Carbon Dioxide 48 mEq/L (19-29) H* 02/10/17 08:28 Creatinine 0.68 mg/dL (0.72-1.25) L 02/10/17 08:28 Glucose 110 mg/dL (70-99) H 02/10/17 08:28 POC Glucose 107 (58-89) H 02/10/17 07:15 Calculated Osmolality 302 (280-300) H 02/10/17 08:28 Serum Total Protein 5.6 g/dL (6.0-8.3) L 02/10/17 08:28 Albumin 2.9 g/dL (3.5-5.0) L 02/10/17 08:28
[2017-02-10] MEDS ORDERED: Naloxone 0.4 MG/ML INJ IVP PRN (09:36)
[2017-02-10] MEDS ORDERED: *HR* Rocuronium Bromide 50 MG/5 ML VIAL ONE (10:00)
[2017-02-10] MEDS ORDERED: *HR* Etomidate 20 MG/10 ML AMPUL IVP ONE (10:00)
[2017-02-10] MEDS: methylPREDNISolone 125 MG/2 ML VIAL IVP SCH ×3 (11:37→23:28)
[2017-02-10] MEDS: Lacri-Lube 3.5 GM TUBE BOTH EYES SCH ×4 (11:37→23:28)
[2017-02-10] MEDS: *HR* FentaNYL (PF) 100 MCG/2 ML VIAL IVP PRN ×2 (11:52→18:45)
[2017-02-10] MEDS ORDERED: *HR* Metoprolol 5 MG/5 ML VIAL IVP ONE (17:10)
[2017-02-10] MEDS: *HR* Metoprolol 5 MG/5 ML VIAL IVP PRN (17:21)
[2017-02-10] MEDS: *HR* Heparin 5,000 UNIT/ML VIAL SQ SCH (17:23)
[2017-02-10] MEDS ORDERED: 0.9 % Sodium Chloride 500 ML IVC ONE (19:59)
[2017-02-11] MEDS: Ipratropium/Albuterol Neb 3 ML IH SCH ×7 (00:10→23:54)
[2017-02-11 01:57] LABS: Basophils % 0.1 %; Mean Corpuscular Volume 92.2 fL (83.0-100.0)
[2017-02-11 01:58] LABS: Hematocrit 41.2 % (37.5-50.1); Hemoglobin 11.4 g/dL (12.9-16.9); Immature Granulocytes % 0.5 % (0-4); Lymphocytes # 0.6 K/mcL (0.6-4.6); Lymphocytes % 6.1 %; Mean Corpuscular HGB Conc 27.7 g/dL (31.6-35.5); Mean Corpuscular Hemoglobin 25.5 pg (28.0-33.3); Monocytes # 0.3 K/mcL (0.0-1.3); Monocytes % 3.6 %; Neutrophils # 8.2 K/mcL (1.6-8.9); Red Blood Count 4.47 M/mcL (4.19-5.50); Red Cell Distribution Width 25.2 % (11.5-14.5); Segmented Neutrophils % 89.7 %
[2017-02-11 02:17] LABS: Alanine Aminotransferase 16 Units/L (0-55); Albumin 3.4 g/dL (3.5-5.0); Alkaline Phosphatase 65 Units/L (38-126); Aspartate Amino Transferase 13 Units/L (5-34); BUN/Creatinine Ratio 21 (6-26); Bilirubin,Direct 0.1 mg/dL (0.0-0.5); Bilirubin,Indirect 0.2 mg/dL (0.0-1.2); Bilirubin,Total 0.3 mg/dL (0.2-1.2); Blood Urea Nitrogen 18 mg/dL (8-26); Calcium 9.3 mg/dL (8.6-10.8); Carbon Dioxide 38 mEq/L (19-29); Chloride 94 mEq/L (98-109); Globulin 3.4 g/dL (2.4-3.5); Glucose 147 mg/dL (70-99); Magnesium 2.1 mg/dL (1.6-2.6); Osmolality,Calculated 299 (280-300); Potassium 4.5 mEq/L (3.5-4.5); Sodium 142 mEq/L (136-145); Total Protein 6.8 g/dL (6.0-8.3); eGFR For African Americans > 60 (> 60); eGFR For Non-African Americans > 60 (> 60)
[2017-02-11 02:22] LABS: Platelet Count 83 K/mcL (140-400)
[2017-02-11 02:23] LABS: Anisocytosis 1+ (Not Present); Hypochromasia Present (Not Present); Platelet Estimate Marked Decrease (Normal); Poikilocytosis 1+ (Not Present)
[2017-02-11 05:05] LABS: ABG Base Excess 24.8 mEq/L (-2.0 to 3.0); ABG HCO3 53.2 mEQ/L (21-27); ABG Oxygen Saturation 92 % (95-98); ABG PH 7.42 pH Units (7.32-7.45); ABG PO2 62 mmHg (85-104); ABG TCO2 55.7 mEq/L (20-26); Blood Gas FiO2 30 %
[2017-02-11 05:06] LABS: ABG PCO2 82 mmHg (35-45)
[2017-02-11] MEDS: *HR* Heparin 5,000 UNIT/ML VIAL SQ SCH ×2 (05:07→17:00)
[2017-02-11] MEDS: Lacri-Lube 3.5 GM TUBE BOTH EYES SCH ×4 (05:08→14:48)
[2017-02-11] MEDS: methylPREDNISolone 125 MG/2 ML VIAL IVP SCH ×4 (05:08→23:49)
[2017-02-11] MEDS: Dexmedetomidine HCl 400 MCG/100 ML MLS IVC SCH ×2 (07:48→14:47)
--- NOTE | 2017-02-11 07:49 | Pulmonology Progress Note ---
<Xiomara Welsh - Last Filed: 02/11/17 11:01> Date of Encounter: 02/11/17 Time of Encounter: 07:49 Assessment and Plan (1) Acute exacerbation of chronic obstructive pulmonary disease Current Visit: Yes Status: Acute Chest x-ray reads no acute cardiopulmonary abnormalities and hyperinflation of the lungs consistent with COPD. Chest x-ray indicates no pneumonia. Patient is currently on Solu-Medrol 60 mg Q6Hr and Du-Neb Q4Hr. Discontinue Levaquin and place patient on azithromycin for coverage of possible atypical pneumonia. CPAP patient today and plan to extubate (2) Paroxysmal a-fib Current Visit: No Status: Chronic Last night, patient went into afib with RVR. Hospitalist began Cardizem drip. Continue Cardizem drip for afib with RVR. Due to history of systolic heart failure, hold fluids. (3) HTN (hypertension) Current Visit: No Status: Chronic Qualifiers: Hypertension type: essential hypertension Qualified Code(s): I10 - Essential (primary) hypertension (4) Anemia Current Visit: No Status: Chronic Qualifiers: Anemia type: iron deficiency Iron deficiency anemia type: unspecified iron deficiency Qualified Code(s): D50.9 - Iron deficiency anemia, unspecified Objective PUL Vital signs: Last Vital Signs Temp 97.6 F 02/11/17 07:00 Pulse 81 02/11/17 07:00 Resp 29 02/11/17 07:00 BP 144/80 02/11/17 07:00 Pulse Ox 94 02/11/17 07:00 General appearance: no acute distress, alert, agitated, other (Patient is intubated.) Eyes: nonicteric ENT: oropharynx moist Neck: supple, no lymphadenopathy, no JVD Effort: mildly labored Auscultation: bilateral: diminished breath sounds, wheezes (bilateral expiratory wheezes) Cardiovascular: regular rate and rhythm (On examination, patient was tachycardic at 100 bpm) Gastrointestinal: normoactive bowel sounds, soft, non-tender, non-distended Extremities: no cyanosis, no edema, no clubbing, pulses normal normal mental status Ventilator Settings Ventilator Settings: Ventilator Settings, Last 8 Hours Ventilator Mode VC+ Ventilator Mode A/C Ventilator Mode A/C Ventilator Mode A/C Ventilator Mode VC+ Ventilator Mode VC+ Ventilator Mode VC+ Ventilator Mode VC+ Ventilator Mode VC+ Ventilator Mode VC+ Ventilator Mode VC+ Ventilator Mode VC+ Ventilator Tidal Volume 450 Setting Ventilator Tidal Volume 450 Setting Ventilator Tidal Volume 450 Setting Ventilator Tidal Volume 4,503 Setting Ventilator Tidal Volume 450 Setting Ventilator Tidal Volume 450 Setting Ventilator Tidal Volume 450 Setting Ventilator Tidal Volume 450 Setting Ventilator Tidal Volume 450 Setting Ventilator Tidal Volume 450 Setting Ventilator Tidal Volume 450 Setting Ventilator Tidal Volume 450 Setting Ventilator Respiratory Rate 16 Setting Ventilator Respiratory Rate 16 Setting Ventilator Respiratory Rate 12 Setting Ventilator Respiratory Rate 12 Setting Ventilator Respiratory Rate 12 Setting Ventilator Respiratory Rate 12 Setting Ventilator Respiratory Rate 12 Setting Ventilator Respiratory Rate 12 Setting Ventilator Respiratory Rate 12 Setting Ventilator Respiratory Rate 12 Setting Ventilator Respiratory Rate 12 Setting Ventilator Respiratory Rate 12 Setting Actual Respiratory Rate 29 Actual Respiratory Rate 18 Actual Respiratory Rate 14 Actual Respiratory Rate 14 Actual Respiratory Rate 16 Actual Respiratory Rate 16 Actual Respiratory Rate 16 Actual Respiratory Rate 18 Actual Respiratory Rate 18 Actual Respiratory Rate 16 Positive End Expiratory 5 Pressure Positive End Expiratory 5 Pressure Positive End Expiratory 5 Pressure Positive End Expiratory 5 Pressure Positive End Expiratory 5 Pressure Positive End Expiratory 5 Pressure Positive End Expiratory 5 Pressure Positive End Expiratory 5 Pressure Positive End Expiratory 5 Pressure Positive End Expiratory 5 Pressure Positive End Expiratory 5 Pressure Positive End Expiratory 5 Pressure Peak Inspiratory Airway 21 Pressure Peak Inspiratory Airway 23 Pressure Peak Inspiratory Airway 21 Pressure Peak Inspiratory Airway 27 Pressure Peak Inspiratory Airway 28 Pressure Peak Inspiratory Airway 26 Pressure Peak Inspiratory Airway 26 Pressure Peak Inspiratory Airway 22 Pressure Peak Inspiratory Airway 26 Pressure Peak Inspiratory Airway 25 Pressure Peak Inspiratory Airway 28 Pressure Results - Laboratory Findings CBC and BMP: 02/11/17 01:49 02/11/17 01:49 ABG ABG pH 7.42 pH Units (7.32-7.45) 02/11/17 04:53 ABG pCO2 82 mmHg (35-45) H* 02/11/17 04:53 ABG pO2 62 mmHg (85-104) L 02/11/17 04:53 ABG O2 Saturation 92 % (95-98) L 02/11/17 04:53 Abnormal lab findings: Abnormal lab results Hgb 11.4 g/dL (12.9-16.9) L 02/11/17 01:49 MCH 25.5 pg (28.0-33.3) L 02/11/17 01:49 MCHC 27.7 g/dL (31.6-35.5) L 02/11/17 01:49 RDW 25.2 % (11.5-14.5) H 02/11/17 01:49 Plt Count 83 K/mcL (140-400) L 02/11/17 01:49 Platelet Estimate Marked Decrease (Normal) L 02/11/17 01:49 Polychromasia 1+ (Not Present) A 02/10/17 08:28 Hypochromasia Present (Not Present) A 02/11/17 01:49 Poikilocytosis 1+ (Not Present) A 02/11/17 01:49 Basophilic Stippling 1+ (Not Present) A 02/10/17 08:28 Anisocytosis 1+ (Not Present) A 02/11/17 01:49 ABG pCO2 82 mmHg (35-45) H* 02/11/17 04:53 ABG pO2 62 mmHg (85-104) L 02/11/17 04:53 ABG HCO3 53.2 mEQ/L (21-27) H 02/11/17 04:53 ABG Total CO2 55.7 mEq/L (20-26) H 02/11/17 04:53 ABG O2 Saturation 92 % (95-98) L 02/11/17 04:53 ABG Base Excess 24.8 mEq/L (-2.0 to 3.0) H 02/11/17 04:53 Chloride 94 mEq/L (98-109) L 02/11/17 01:49 Carbon Dioxide 38 mEq/L (19-29) H 02/11/17 01:49 Glucose 147 mg/dL (70-99) H 02/11/17 01:49 POC Glucose 166 (58-89) H 02/11/17 05:09 Albumin 3.4 g/dL (3.5-5.0) L 02/11/17 01:49 Albumin/Globulin Ratio 1.0 (1.1-2.2) L 02/11/17 01:49 - Microbiology Findings Microbiology Findings: Microbiology, Last 48 Hours 02/10/17 07:42 Sputum Culture - Preliminary Sputum - Clinical Findings Intake & Output: Intake & Output 02/10/17 02/10/17 02/11/17 15:59 23:59 07:59 Intake Total 100 / 100 373 / 373 228 / 228 Output Total 150 / 150 650 / 650 750 / 750 Balance -50 / -50 -277 / -277 -522 / -522 Weight 74 kg Consult Discharge Plan - Plan Referrals: NO,PCP [Primary Care Provider] - <Saleem Hoffman W - Last Filed: 02/11/17 14:25> Date of Encounter: 02/11/17 Objective PUL Vital signs: Last Vital Signs Temp 97.6 F 02/11/17 07:00 Pulse 80 02/11/17 08:00 Resp 20 02/11/17 08:24 BP 144/69 02/11/17 08:24 Pulse Ox 94 02/11/17 08:24 Ventilator Settings Ventilator Settings: Ventilator Settings, Last 8 Hours Ventilator Mode VC+ Ventilator Mode VC+ Ventilator Mode VC+ Ventilator Mode A/C Ventilator Mode A/C Ventilator Mode A/C Ventilator Mode VC+ Ventilator Mode VC+ Ventilator Mode VC+ Ventilator Mode VC+ Ventilator Mode VC+ Ventilator Mode VC+ Ventilator Tidal Volume 450 Setting Ventilator Tidal Volume 450 Setting Ventilator Tidal Volume 450 Setting Ventilator Tidal Volume 450 Setting Ventilator Tidal Volume 450 Setting Ventilator Tidal Volume 4,503 Setting Ventilator Tidal Volume 450 Setting Ventilator Tidal Volume 450 Setting Ventilator Tidal Volume 450 Setting Ventilator Tidal Volume 450 Setting Ventilator Tidal Volume 450 Setting Ventilator Tidal Volume 450 Setting Ventilator Respiratory Rate 16 Setting Ventilator Respiratory Rate 16 Setting Ventilator Respiratory Rate 16 Setting Ventilator Respiratory Rate 16 Setting Ventilator Respiratory Rate 12 Setting Ventilator Respiratory Rate 12 Setting Ventilator Respiratory Rate 12 Setting Ventilator Respiratory Rate 12 Setting Ventilator Respiratory Rate 12 Setting Ventilator Respiratory Rate 12 Setting Ventilator Respiratory Rate 12 Setting Ventilator Respiratory Rate 12 Setting Actual Respiratory Rate 23 Actual Respiratory Rate 20 Actual Respiratory Rate 29 Actual Respiratory Rate 18 Actual Respiratory Rate 14 Actual Respiratory Rate 14 Actual Respiratory Rate 16 Actual Respiratory Rate 16 Actual Respiratory Rate 16 Actual Respiratory Rate 18 Positive End Expiratory 5 Pressure Positive End Expiratory 5 Pressure Positive End Expiratory 5 Pressure Positive End Expiratory 5 Pressure Positive End Expiratory 5 Pressure Positive End Expiratory 5 Pressure Positive End Expiratory 5 Pressure Positive End Expiratory 5 Pressure Positive End Expiratory 5 Pressure Positive End Expiratory 5 Pressure Positive End Expiratory 5 Pressure Positive End Expiratory 5 Pressure Peak Inspiratory Airway 21 Pressure Peak Inspiratory Airway 19 Pressure Peak Inspiratory Airway 21 Pressure Peak Inspiratory Airway 23 Pressure Peak Inspiratory Airway 21 Pressure Peak Inspiratory Airway 27 Pressure Peak Inspiratory Airway 28 Pressure Peak Inspiratory Airway 26 Pressure Peak Inspiratory Airway 26 Pressure Peak Inspiratory Airway 22 Pressure Peak Inspiratory Airway 26 Pressure Results - Laboratory Findings CBC and BMP: 02/11/17 01:49 02/11/17 01:49 ABG ABG pH 7.42 pH Units (7.32-7.45) 02/11/17 04:53 ABG pCO2 82 mmHg (35-45) H* 02/11/17 04:53 ABG pO2 62 mmHg (85-104) L 02/11/17 04:53 ABG O2 Saturation 92 % (95-98) L 02/11/17 04:53 Abnormal lab findings: Abnormal lab results Hgb 11.4 g/dL (12.9-16.9) L 02/11/17 01:49 MCH 25.5 pg (28.0-33.3) L 02/11/17 01:49 MCHC 27.7 g/dL (31.6-35.5) L 02/11/17 01:49 RDW 25.2 % (11.5-14.5) H 02/11/17 01:49 Plt Count 83 K/mcL (140-400) L 02/11/17 01:49 Platelet Estimate Marked Decrease (Normal) L 02/11/17 01:49 Polychromasia 1+ (Not Present) A 02/10/17 08:28 Hypochromasia Present (Not Present) A 02/11/17 01:49 Poikilocytosis 1+ (Not Present) A 02/11/17 01:49 Basophilic Stippling 1+ (Not Present) A 02/10/17 08:28 Anisocytosis 1+ (Not Present) A 02/11/17 01:49 ABG pCO2 82 mmHg (35-45) H* 02/11/17 04:53 ABG pO2 62 mmHg (85-104) L 02/11/17 04:53 ABG HCO3 53.2 mEQ/L (21-27) H 02/11/17 04:53 ABG Total CO2 55.7 mEq/L (20-26) H 02/11/17 04:53 ABG O2 Saturation 92 % (95-98) L 02/11/17 04:53 ABG Base Excess 24.8 mEq/L (-2.0 to 3.0) H 02/11/17 04:53 Chloride 94 mEq/L (98-109) L 02/11/17 01:49 Carbon Dioxide 38 mEq/L (19-29) H 02/11/17 01:49 Glucose 147 mg/dL (70-99) H 02/11/17 01:49 POC Glucose 166 (58-89) H 02/11/17 05:09 Albumin 3.4 g/dL (3.5-5.0) L 02/11/17 01:49 Albumin/Globulin Ratio 1.0 (1.1-2.2) L 02/11/17 01:49 - Microbiology Findings Microbiology Findings: Microbiology, Last 48 Hours 02/10/17 07:42 Sputum Culture - Preliminary Sputum - Clinical Findings Intake & Output: Intake & Output 02/10/17 02/11/17 02/11/17 23:59 07:59 15:59 Intake Total 373 / 373 246 / 246 3.3 / 3.3 Output Total 650 / 650 750 / 750 Balance -277 / -277 -504 / -504 3.3 / 3.3 Weight 74 kg - Attending Attestation I examined this patient and my medical decision-making was reviewed with the Resident Physician. I agree with the documented findings, disposition and treatment plan as described except to the extent set forth below. Patient seen and examined at bedside Labs, radiology, chart personally reviewed. All lines examined without evidence of infection. Management was reviewed during multidisciplinary critical care rounds. Neuropsych: Awake and alert following commands he is undergoing continuous infusion of narcotic and Precedex to help with endotracheal tube discomfort along with baseline anxiety; may need small doses of anxiolytics such as benzodiazepine for air hunger Pulm: Acute on chronic hypoxic hypercarbic respiratory failure secondary to COPD exacerbation no clear evidence of pneumonia plan for extubation today after CPAP trial. He is receiving intravenous steroids and antibiotics and bronchodilators for treatment of COPD exacerbation Cards: A. fib now with RVR on diltiazem drip now rate controlled will increased frequency of oral medication and back off on rate of diltiazem infusion. ECG without evidence of STEMI FEN-GI: GI prophylaxis given nothing by mouth for now Renal: No evidence of DANA he is having good urine output continue to monitor ID: No clear evidence of pneumonia de-escalate her antimicrobials to azithromycin for COPD exacerbation Heme/Onc: DVT prophylaxis given Endo: Glucose monitored Integ/MSK: Skin care per routine ICU protocol prevent skin ulcers CODE: The patient is full code I discussed with him with endotracheal tube and if we removed Ridgesamantha Mcclain replaced and he said he would at this time this case would be to x-ray patient and have long discussion with palliative care service and family members about ongoing goals of care for end-stage COPD
[2017-02-11] MEDS: Pantoprazole 40 MG VIAL IVP SCH (08:02)
[2017-02-11] MEDS: Chlorhexidine Rinse 15 ML MOUTHWASH MM SCH (08:02)
[2017-02-11] MEDS: Budesonide/Formoterol 160/4.5 MDI IH SCH ×2 (08:24→20:56)
[2017-02-11] MEDS: *HR* LORazepam 2 MG/ML VIAL IVP PRN ×2 (08:51→15:24)
[2017-02-11] MEDS: *HR* Metoprolol 5 MG/5 ML VIAL IVP PRN (08:54)
[2017-02-11] MEDS ORDERED: Levofloxacin 500 MG/100 ML 500 MG/100 ML BAG IVPB SCH (09:00)
[2017-02-11] MEDS ORDERED: Azithromycin 500 MG in D5% in Water 250 ML IVPB SCH (12:00)
[2017-02-11] MEDS ORDERED: Furosemide 40 MG/4 ML VIAL IVP ONE (14:56)
[2017-02-11] MEDS: Metoprolol 100 MG TABLET PO SCH ×2 (15:45→19:57)
--- NOTE | 2017-02-11 15:57 | Electrocardiograph Report ---
[address] [place], [place] [address] Test Date: 2017-02-10 Pat Name: Rito Romo Department: 109 Room: 09 Gender: M Solderer Production Line: : 1955 Requested By: Talha Robertson Order Number: [id number] Reading MD: Mitchell Thorpe MD Measurements Intervals [place] Rate: 154 P: VT: 0 QRS: 61 QRSD: 117 T: 0 QT: 303 QTc: 390 Interpretive Statements ATRIAL FLUTTER/TACHYCARDIA WITH RAPID VENTRICULAR RESPONSE WITH ABERRANT CONDUCTION OR VENTRICULAR PREMATURE COMPLEXES INDETERMINATE AXIS incomplete RIGHT BUNDLE BRANCH BLOCK PROBABLE INFERIOR MYOCARDIAL INFARCTION, OF INDETERMINATE AGE Electronically Signed On 02-11-2017 15:56:07 EDT by Mitchell Thorpe MD
--- NOTE | 2017-02-11 16:31 | Electrocardiograph Report ---
[address] [place], [place] [address] Test Date: 2017-02-11 Pat Name: Rito Romo Department: 109 Room: [facility] Gender: M Superintendent Building: : 1955 Requested By: Xiomara Wlesh Order Number: [id number] Reading MD: Mitchell Thorpe MD Measurements Intervals [place] Rate: 66 P: 77 MI: 136 QRS: 79 QRSD: 122 T: 89 QT: 422 QTc: 435 Interpretive Statements SINUS RHYTHM WITH SINUS ARRHYTHMIA RIGHT BUNDLE BRANCH BLOCK Electronically Signed On 02-11-2017 16:30:03 EDT by Mitchell Thorpe MD
[2017-02-11] MEDS ORDERED: *HR* OxyCODONE/APAP 10/325 TABLET PO PRN (19:22)
[2017-02-12] MEDS: Ipratropium/Albuterol Neb 3 ML IH SCH ×2 (03:51→07:35)
[2017-02-12 05:26] LABS: Hemoglobin 11.6 g/dL (12.9-16.9); Red Cell Distribution Width 24.7 % (11.5-14.5)
[2017-02-12 05:28] LABS: Basophils % 0.2 %; Hematocrit 41.4 % (37.5-50.1); Immature Granulocytes % 0.7 % (0-4); Lymphocytes # 0.4 K/mcL (0.6-4.6); Lymphocytes % 6.1 %; Mean Corpuscular Hemoglobin 24.6 pg (28.0-33.3); Mean Corpuscular Volume 87.7 fL (83.0-100.0); Monocytes # 0.2 K/mcL (0.0-1.3); Monocytes % 2.5 %; Neutrophils # 5.5 K/mcL (1.6-8.9); Platelet Count 105 K/mcL (140-400); Red Blood Count 4.72 M/mcL (4.19-5.50); Segmented Neutrophils % 90.5 %
[2017-02-12 05:33] LABS: Alanine Aminotransferase 16 Units/L (0-55); Albumin 3.3 g/dL (3.5-5.0); Alkaline Phosphatase 63 Units/L (38-126); Aspartate Amino Transferase 13 Units/L (5-34); BUN/Creatinine Ratio 24 (6-26); Bilirubin,Direct 0.2 mg/dL (0.0-0.5); Bilirubin,Indirect 0.2 mg/dL (0.0-1.2); Bilirubin,Total 0.4 mg/dL (0.2-1.2); Blood Urea Nitrogen 20 mg/dL (8-26); Calcium 9.5 mg/dL (8.6-10.8); Chloride 90 mEq/L (98-109); Globulin 3.4 g/dL (2.4-3.5); Glucose 174 mg/dL (70-99); Magnesium 1.9 mg/dL (1.6-2.6); Osmolality,Calculated 299 (280-300); Potassium 3.9 mEq/L (3.5-4.5); Sodium 141 mEq/L (136-145); Total Protein 6.7 g/dL (6.0-8.3); eGFR For African Americans > 60 (> 60); eGFR For Non-African Americans > 60 (> 60)
[2017-02-12 05:35] LABS: Carbon Dioxide 43 mEq/L (19-29)
[2017-02-12] MEDS: *HR* Heparin 5,000 UNIT/ML VIAL SQ SCH ×2 (06:11→18:13)
[2017-02-12] MEDS: methylPREDNISolone 125 MG/2 ML VIAL IVP SCH ×4 (06:11→23:05)
[2017-02-12 06:19] LABS: Anisocytosis 2+ (Not Present); Hypochromasia Present (Not Present); Platelet Estimate Slight Decrease (Normal)
[2017-02-12 06:20] LABS: Poikilocytosis 1+ (Not Present)
--- NOTE | 2017-02-12 06:38 | Pulmonology Progress Note ---
<Xiomara Welsh - Last Filed: 02/12/17 08:53> Date of Encounter: 02/12/17 Time of Encounter: 06:38 Assessment and Plan (1) Acute exacerbation of chronic obstructive pulmonary disease Current Visit: Yes Status: Acute Chest x-ray reads no acute cardiopulmonary abnormalities and hyperinflation of the lungs consistent with COPD. Chest x-ray indicates no pneumonia. Patient is currently on Solu-Medrol 60 mg Q6Hr and Du-Neb Q4Hr. Discontinue Levaquin and place patient on azithromycin for coverage of possible atypical pneumonia. CPAP patient today and plan to extubate (2) Paroxysmal a-fib Current Visit: No Status: Chronic Last night, patient went into afib with RVR. Hospitalist began Cardizem drip. Continue Cardizem drip for afib with RVR. Due to history of systolic heart failure, hold fluids. (3) HTN (hypertension) Current Visit: No Status: Chronic Qualifiers: Hypertension type: essential hypertension Qualified Code(s): I10 - Essential (primary) hypertension (4) Anemia Current Visit: No Status: Chronic Qualifiers: Anemia type: iron deficiency Iron deficiency anemia type: unspecified iron deficiency Qualified Code(s): D50.9 - Iron deficiency anemia, unspecified Objective PUL Vital signs: Last Vital Signs Temp 98.2 F 02/12/17 04:00 Pulse 113 02/12/17 06:00 Resp 16 02/12/17 06:00 BP 98/82 02/12/17 06:00 Pulse Ox 94 02/12/17 06:00 General appearance: no acute distress, alert Eyes: nonicteric ENT: oropharynx moist Neck: supple, no lymphadenopathy, no JVD Effort: normal Auscultation: bilateral: wheezes (bilateral expiratory wheezes) Cardiovascular: regular rate and rhythm (tachycardic on examination) Gastrointestinal: normoactive bowel sounds, soft, non-tender, non-distended, other (umbilcal hernia present.) Integumentary: normal Extremities: no cyanosis, no clubbing, pink and warm, pulses normal, edema (+1 pitting edema in his bilateral lower extremitities) Musculoskeletal: no deformities normal mental status mood appropriate, affect normal Results - Laboratory Findings CBC and BMP: 02/12/17 04:58 02/12/17 04:58 ABG ABG pH 7.42 pH Units (7.32-7.45) 02/11/17 04:53 ABG pCO2 82 mmHg (35-45) H* 02/11/17 04:53 ABG pO2 62 mmHg (85-104) L 02/11/17 04:53 ABG O2 Saturation 92 % (95-98) L 02/11/17 04:53 Abnormal lab findings: Abnormal lab results Hgb 11.6 g/dL (12.9-16.9) L 02/12/17 04:58 MCH 24.6 pg (28.0-33.3) L 02/12/17 04:58 MCHC 28.0 g/dL (31.6-35.5) L 02/12/17 04:58 RDW 24.7 % (11.5-14.5) H 02/12/17 04:58 Plt Count 105 K/mcL (140-400) L 02/12/17 04:58 Lymphocytes # 0.4 K/mcL (0.6-4.6) L 02/12/17 04:58 Platelet Estimate Slight Decrease (Normal) L 02/12/17 04:58 Polychromasia 1+ (Not Present) A 02/10/17 08:28 Hypochromasia Present (Not Present) A 02/12/17 04:58 Poikilocytosis 1+ (Not Present) A 02/12/17 04:58 Basophilic Stippling 1+ (Not Present) A 02/10/17 08:28 Anisocytosis 2+ (Not Present) A 02/12/17 04:58 ABG pCO2 82 mmHg (35-45) H* 02/11/17 04:53 ABG pO2 62 mmHg (85-104) L 02/11/17 04:53 ABG HCO3 53.2 mEQ/L (21-27) H 02/11/17 04:53 ABG Total CO2 55.7 mEq/L (20-26) H 02/11/17 04:53 ABG O2 Saturation 92 % (95-98) L 02/11/17 04:53 ABG Base Excess 24.8 mEq/L (-2.0 to 3.0) H 02/11/17 04:53 Chloride 90 mEq/L (98-109) L 02/12/17 04:58 Carbon Dioxide 43 mEq/L (19-29) H* 02/12/17 04:58 Glucose 174 mg/dL (70-99) H 02/12/17 04:58 POC Glucose 166 (58-89) H 02/11/17 11:28 Albumin 3.3 g/dL (3.5-5.0) L 02/12/17 04:58 Albumin/Globulin Ratio 1.0 (1.1-2.2) L 02/12/17 04:58 - Microbiology Findings Microbiology Findings: Microbiology, Last 48 Hours 02/11/17 14:00 Legionella Antigen - Final Urine,[place] Streptococcus pneumoniae Antigen (M - Final 02/10/17 07:42 Sputum Culture - Final Sputum Gram Positive Rods - Clinical Findings Intake & Output: Intake & Output 02/11/17 02/11/17 02/12/17 15:59 23:59 07:59 Intake Total 622.6 / 622.6 357.0 / 357.0 240 / 240 Output Total 800 / 800 2100 / 2100 300 / 300 Balance -177.4 / -177.4 -1743.0 / -1743.0 -60 / -60 Weight 75.5 kg Consult Discharge Plan - Plan Referrals: NO,PCP [Primary Care Provider] - <Saleem Hoffman W - Last Filed: 02/12/17 12:44> Date of Encounter: 02/12/17 Objective PUL Vital signs: Last Vital Signs Temp 98.0 F 02/12/17 07:00 Pulse 89 02/12/17 11:00 Resp 16 02/12/17 11:00 BP 102/87 02/12/17 11:00 Pulse Ox 95 02/12/17 11:00 Results - Laboratory Findings CBC and BMP: 02/12/17 04:58 02/12/17 04:58 ABG ABG pH 7.42 pH Units (7.32-7.45) 02/11/17 04:53 ABG pCO2 82 mmHg (35-45) H* 02/11/17 04:53 ABG pO2 62 mmHg (85-104) L 02/11/17 04:53 ABG O2 Saturation 92 % (95-98) L 02/11/17 04:53 Abnormal lab findings: Abnormal lab results Hgb 11.6 g/dL (12.9-16.9) L 02/12/17 04:58 MCH 24.6 pg (28.0-33.3) L 02/12/17 04:58 MCHC 28.0 g/dL (31.6-35.5) L 02/12/17 04:58 RDW 24.7 % (11.5-14.5) H 02/12/17 04:58 Plt Count 105 K/mcL (140-400) L 02/12/17 04:58 Lymphocytes # 0.4 K/mcL (0.6-4.6) L 02/12/17 04:58 Platelet Estimate Slight Decrease (Normal) L 02/12/17 04:58 Polychromasia 1+ (Not Present) A 02/10/17 08:28 Hypochromasia Present (Not Present) A 02/12/17 04:58 Poikilocytosis 1+ (Not Present) A 02/12/17 04:58 Basophilic Stippling 1+ (Not Present) A 02/10/17 08:28 Anisocytosis 2+ (Not Present) A 02/12/17 04:58 ABG pCO2 82 mmHg (35-45) H* 02/11/17 04:53 ABG pO2 62 mmHg (85-104) L 02/11/17 04:53 ABG HCO3 53.2 mEQ/L (21-27) H 02/11/17 04:53 ABG Total CO2 55.7 mEq/L (20-26) H 02/11/17 04:53 ABG O2 Saturation 92 % (95-98) L 02/11/17 04:53 ABG Base Excess 24.8 mEq/L (-2.0 to 3.0) H 02/11/17 04:53 Chloride 90 mEq/L (98-109) L 02/12/17 04:58 Carbon Dioxide 43 mEq/L (19-29) H* 02/12/17 04:58 Glucose 174 mg/dL (70-99) H 02/12/17 04:58 POC Glucose 166 (58-89) H 02/11/17 11:28 Albumin 3.3 g/dL (3.5-5.0) L 02/12/17 04:58 Albumin/Globulin Ratio 1.0 (1.1-2.2) L 02/12/17 04:58 - Microbiology Findings Microbiology Findings: Microbiology, Last 48 Hours 02/11/17 14:00 Legionella Antigen - Final Urine,[place] Streptococcus pneumoniae Antigen (M - Final 02/10/17 07:42 Sputum Culture - Final Sputum Gram Positive Rods - Clinical Findings Intake & Output: Intake & Output 02/11/17 02/12/17 02/12/17 23:59 07:59 15:59 Intake Total 357.0 / 357.0 240 / 240 240 / 240 Output Total 2100 / 2100 800 / 800 Balance -1743.0 / -1743.0 -560 / -560 240 / 240 Weight 75.5 kg - Attending Attestation I examined this patient and my medical decision-making was reviewed with the Resident Physician. I agree with the documented findings, disposition and treatment plan as described except to the extent set forth below. Patient seen and examined at bedside Labs, radiology, chart personally reviewed. All lines examined without evidence of infection. Management was reviewed during multidisciplinary critical care rounds. Neuropsych: Awake and alert today following all commands chronic anxiety restart the patient's citalopram for this Pulm: End-stage COPD liberated from the ventilator over the last 24 hours generally doing well still with COPD exacerbation continue IV steroids Gil dilators have been adjusted for atrial fibrillation continue metered-dose inhaler Symbicort; continue noninvasive ventilation at night Cards: Atrial fibrillation with rapid ventricular response remains on diltiazem drip weaning down increasing dose of beta sung and we have eliminated the albuterol from his regimen appears to have worsened tachycardia and driven process of rapid ventricular response has a history of systolic heart failure and we will also implement a diuretic regimen FEN-GI: Advance diet as tolerated Renal: Stable continue to monitor ID: Transitioned to azithromycin and doxycycline for treatment of COPD exacerbation 5 days Heme/Onc: DVT prophylaxis given Endo: Glucose monitored Integ/MSK: Skin care per routine CODE: Stable for transfer to medical telemetry
[2017-02-12] MEDS ORDERED: Furosemide 40 MG/4 ML VIAL IVP ONE (07:14)
[2017-02-12] MEDS: Budesonide/Formoterol 160/4.5 MDI IH SCH ×2 (07:35→21:20)
[2017-02-12] MEDS: Pantoprazole 40 MG VIAL IVP SCH (08:02)
[2017-02-12] MEDS: Metoprolol 100 MG TABLET PO SCH (08:02)
[2017-02-12] MEDS: Dexmedetomidine HCl 400 MCG/100 ML MLS IVC SCH (08:03)
[2017-02-12] MEDS ORDERED: Levalbuterol Neb 1.25 MG/3 ML IH SCH (10:00)
[2017-02-12] MEDS ORDERED: Ipratropium Neb 0.5 MG NEBULIZER IH SCH ×2 (10:00→12:00)
[2017-02-12] MEDS ORDERED: Dexmedetomidine HCl 400 MCG/100 ML MLS IVC SCH (10:38)
[2017-02-12] MEDS ORDERED: Naloxone 0.4 MG/ML INJ IVP PRN (10:38)
[2017-02-12] MEDS ORDERED: *HR* LORazepam 2 MG/ML VIAL IVP PRN (10:38)
[2017-02-12] MEDS ORDERED: *HR* FentaNYL (PF) 100 MCG/2 ML VIAL IVP PRN (10:38)
[2017-02-12] MEDS: Levalbuterol Neb 1.25 MG/3 ML IH SCH ×2 (16:56→21:22)
[2017-02-12] MEDS: Ipratropium Neb 0.5 MG NEBULIZER IH SCH ×2 (16:56→21:20)
[2017-02-12] MEDS: *HR* OxyCODONE/APAP 10/325 TABLET PO PRN ×2 (18:19→21:00)
[2017-02-12] MEDS ORDERED: Doxycycline 100 MG CAPSULE PO SCH (21:00)
[2017-02-12] MEDS: Doxycycline 100 MG CAPSULE PO SCH (21:00)
[2017-02-12] MEDS ORDERED: Metoprolol 100 MG TABLET PO SCH (21:00)
[2017-02-12] MEDS: Artificial Tears SOLN 15 ML BOTTLE BOTH EYES PRN (21:24)
[2017-02-13] MEDS: Ipratropium Neb 0.5 MG NEBULIZER IH SCH ×4 (03:38→23:24)
[2017-02-13] MEDS: Levalbuterol Neb 1.25 MG/3 ML IH SCH ×4 (03:38→23:24)
[2017-02-13] MEDS: methylPREDNISolone 125 MG/2 ML VIAL IVP SCH ×3 (05:47→20:13)
[2017-02-13] MEDS: *HR* Heparin 5,000 UNIT/ML VIAL SQ SCH ×2 (05:47→17:15)
[2017-02-13 06:06] LABS: Hematocrit 37.5 % (37.5-50.1); Hemoglobin 10.9 g/dL (12.9-16.9); Immature Granulocytes % 0.7 % (0-4); Lymphocytes # 0.4 K/mcL (0.6-4.6); Lymphocytes % 7.3 %; Mean Corpuscular HGB Conc 29.1 g/dL (31.6-35.5); Mean Corpuscular Hemoglobin 25.6 pg (28.0-33.3); Monocytes # 0.3 K/mcL (0.0-1.3); Monocytes % 5.9 %; Neutrophils # 4.8 K/mcL (1.6-8.9); Platelet Count 116 K/mcL (140-400); Red Blood Count 4.26 M/mcL (4.19-5.50); Segmented Neutrophils % 86.1 %
[2017-02-13 06:20] LABS: Alanine Aminotransferase 21 Units/L (0-55); Albumin 3.1 g/dL (3.5-5.0); Alkaline Phosphatase 58 Units/L (38-126); Aspartate Amino Transferase 21 Units/L (5-34); BUN/Creatinine Ratio 42 (6-26); Bilirubin,Direct 0.2 mg/dL (0.0-0.5); Bilirubin,Indirect 0.1 mg/dL (0.0-1.2); Bilirubin,Total 0.3 mg/dL (0.2-1.2); Calcium 9.1 mg/dL (8.6-10.8); Chloride 92 mEq/L (98-109); Globulin 3.1 g/dL (2.4-3.5); Glucose 147 mg/dL (70-99); Magnesium 1.8 mg/dL (1.6-2.6); Osmolality,Calculated 301 (280-300); Potassium 3.9 mEq/L (3.5-4.5); Sodium 141 mEq/L (136-145); Total Protein 6.2 g/dL (6.0-8.3); eGFR For African Americans > 60 (> 60); eGFR For Non-African Americans > 60 (> 60)
[2017-02-13 06:22] LABS: Blood Urea Nitrogen 31 mg/dL (8-26)
[2017-02-13 06:24] LABS: Carbon Dioxide 45 mEq/L (19-29)
[2017-02-13 06:29] LABS: Anisocytosis 2+ (Not Present); Hypochromasia Present (Not Present); Large Platelets Present (Not Present); Platelet Estimate Decreased (Normal); Poikilocytosis 1+ (Not Present)
[2017-02-13] MEDS: *HR* OxyCODONE/APAP 10/325 TABLET PO PRN (07:46)
[2017-02-13] MEDS: Doxycycline 100 MG CAPSULE PO SCH ×2 (07:46→20:12)
[2017-02-13] MEDS: Artificial Tears SOLN 15 ML BOTTLE BOTH EYES PRN (07:50)
[2017-02-13] MEDS ORDERED: Pantoprazole 40 MG VIAL IVP SCH (09:00)
[2017-02-13] MEDS: Budesonide/Formoterol 160/4.5 MDI IH SCH ×2 (10:43→23:25)
--- NOTE | 2017-02-13 14:57 | Internal Med Progress Note ---
<Jean Marie Rivas - Last Filed: 02/13/17 14:54> Date of Encounter: 02/13/17 Time of Encounter: 10:00 - Assessment and plan (1) Respiratory failure with hypercapnia Current Visit: No Status: Acute Assessment and plan: - Transferred from ICU yesterday, extubated weaned to BiPAP - Currently tolerating 4 L of oxygen via nasal cannula - Home oxygen of 4 L, currently at baseline. Without complaints of shortness of breath - Decreased dose of methylprednisone to 60 mg twice a day, duo nebs Qualifiers: Chronicity: acute Qualified Code(s): J96.02 - Acute respiratory failure with hypercapnia (2) Acute exacerbation of chronic obstructive pulmonary disease Current Visit: Yes Status: Acute Assessment and plan: -Exacerbation etiologies possible including cigarette smoking, underlying bronchitis, increased temperatures - Decrease methylprednisone and transitioned to oral on tomorrow. Continue doxycycline 100 mg twice a day. DuoNebs every 4 hours when necessary wheezing - Currently tolerating home levels of oxygen without complications - Sputum culture revealed gram-positive rods - Instructed about tobacco cessation (3) HTN (hypertension) Current Visit: No Status: Chronic Assessment and plan: - Currently well-controlled at 124/74 - Continue home dose of metoprolol 125 mg twice a day Qualifiers: Hypertension type: essential hypertension Qualified Code(s): I10 - Essential (primary) hypertension (4) CAD (coronary artery disease) Current Visit: No Status: Chronic Assessment and plan: - Continue statin Qualifiers: Coronary Disease-Associated Artery/Lesion type: [place] artery [place] vs. transplanted heart: [place] heart Associated angina: without angina Qualified Code(s): I25.10 - Atherosclerotic heart disease of [place] coronary artery without angina pectoris (5) Tobacco abuse Current Visit: No Status: Chronic Assessment and plan: - Educated about portions of his tobacco cessation for prevention of further exacerbations (6) DVT prophylaxis Current Visit: No Status: Inactive Assessment and plan: - Heparin 5000 units subcutaneously - Time Spent With Patient 25 - 35 minutes - Subjective Interval history: Patient was seen and examined at bedside this morning. He states he currently has no complaints at this time. His breathing has improved to his baseline, he is currently tolerating 4 L of oxygen without complaints. He states he has a chronic cough, however this is at his baseline. He denies any symptoms of fevers, chills, nausea, vomiting, chest pain. - Constitutional Vitals: Temp Pulse Resp BP Pulse Ox 98.3 F 82 17 127/40 93 02/13/17 11:28 02/13/17 11:28 02/13/17 11:28 02/13/17 11:28 02/13/17 11:28 Exam: Gen.: Vitals noted. No acute distress. AAOx3 HEENT: PERRL/EOMI, oropharynx clear, Normocephalic, atraumatic Neck: Supple. No adenopathy. Cardiac: RRR, no murmur, +S1/S2 Pulmonary: Diffuse end expiratory wheezing. no rales or rhonchi, equal chest expansion Abdomen: soft, nontender, BS noted, no guarding Back: Nontender throughout. MSK: ROM intact, no joint swelling noted Extremities: no BLE edema, nontender calf, no cyanosis or clubbing Neuro: A&Ox3, moves all extremities, no focal deficits Psych: Appropriate mood and behavior Internal Medicine: Result - Labs CBC & Chem 7: 02/13/17 05:30 02/13/17 05:30 Labs: Short CBC 02/13/17 Range/Units 05:30 WBC 5.6 (4.3-11.1) K/mcL Hgb 10.9 L (12.9-16.9) g/dL Hct 37.5 (37.5-50.1) % Plt Count 116 L (140-400) K/mcL Neutrophils # 4.8 (1.6-8.9) K/mcL BMP 02/13/17 05:30 Sodium 141 Potassium 3.9 Chloride 92 L Carbon Dioxide 45 H* BUN 31 H D Creatinine 0.74 Glucose 147 H Calcium 9.1 Liver Function 02/13/17 Range/Units 05:30 Total Bilirubin 0.3 (0.2-1.2) mg/dL Direct Bilirubin 0.2 (0.0-0.5) mg/dL AST 21 (5-34) Units/L ALT 21 (0-55) Units/L Alkaline Phosphatase 58 (38-126) Units/L Albumin 3.1 L (3.5-5.0) g/dL - ABG Interpretation ABG results: ABG ABG pH 7.42 pH Units (7.32-7.45) 02/11/17 04:53 ABG pCO2 82 mmHg (35-45) H* 02/11/17 04:53 ABG pO2 62 mmHg (85-104) L 02/11/17 04:53 ABG O2 Saturation 92 % (95-98) L 02/11/17 04:53 Consult Discharge Plan - Plan Referrals: NO,PCP [Primary Care Provider] - <Severo Castillo - Last Filed: 02/13/17 19:27> Date of Encounter: 02/13/17 - Assessment and plan (1) Respiratory failure with hypercapnia Current Visit: No Status: Acute Qualifiers: Chronicity: acute Qualified Code(s): J96.02 - Acute respiratory failure with hypercapnia (2) Paroxysmal a-fib Current Visit: Yes Status: Acute (3) Acute exacerbation of chronic obstructive pulmonary disease Current Visit: Yes Status: Acute (4) CAD (coronary artery disease) Current Visit: No Status: Chronic Qualifiers: Coronary Disease-Associated Artery/Lesion type: [place] artery [place] vs. transplanted heart: [place] heart Associated angina: without angina Qualified Code(s): I25.10 - Atherosclerotic heart disease of [place] coronary artery without angina pectoris (5) HTN (hypertension) Current Visit: No Status: Chronic Qualifiers: Hypertension type: essential hypertension Qualified Code(s): I10 - Essential (primary) hypertension (6) Tobacco abuse Current Visit: No Status: Chronic (7) Chronic respiratory failure with hypoxia Current Visit: Yes Status: Chronic - Constitutional Vitals: Temp Pulse Resp BP Pulse Ox 98.0 F 150 16 108/63 94 02/13/17 17:40 02/13/17 17:40 02/13/17 15:55 02/13/17 17:40 02/13/17 17:40 Internal Medicine: Result - Labs CBC & Chem 7: 02/13/17 05:30 02/13/17 05:30 Labs: Short CBC 02/13/17 Range/Units 05:30 WBC 5.6 (4.3-11.1) K/mcL Hgb 10.9 L (12.9-16.9) g/dL Hct 37.5 (37.5-50.1) % Plt Count 116 L (140-400) K/mcL Neutrophils # 4.8 (1.6-8.9) K/mcL BMP 02/13/17 05:30 Sodium 141 Potassium 3.9 Chloride 92 L Carbon Dioxide 45 H* BUN 31 H D Creatinine 0.74 Glucose 147 H Calcium 9.1 Liver Function 02/13/17 Range/Units 05:30 Total Bilirubin 0.3 (0.2-1.2) mg/dL Direct Bilirubin 0.2 (0.0-0.5) mg/dL AST 21 (5-34) Units/L ALT 21 (0-55) Units/L Alkaline Phosphatase 58 (38-126) Units/L Albumin 3.1 L (3.5-5.0) g/dL - ABG Interpretation ABG results: ABG ABG pH 7.42 pH Units (7.32-7.45) 02/11/17 04:53 ABG pCO2 82 mmHg (35-45) H* 02/11/17 04:53 ABG pO2 62 mmHg (85-104) L 02/11/17 04:53 ABG O2 Saturation 92 % (95-98) L 02/11/17 04:53 - Attending Attestation I examined this patient and my medical decision-making was reviewed with the Resident Physician on 02/13/17. I agree with the documented findings, disposition and treatment plan as described except to the extent set forth below. Mr. Romo is currently admitted for acute hypercarbic resp failure resulting in intubation. He remains high risk due to potential for worsening respiratory status as well as issues with rapid a fib. Mr. Romo is feeling nearly baseline and wants to go home. His heartrate was elevated last night and again today. No fever or chills. No GI issues. Currently on 4l oxygen. Exam Alert. comfortable Mucus membranes moist Heart irreg - not tachy now Lungs with scant end exp wheeze No edema I/P 1. Resp failure 2. A fib 3. COPD Further diagnoses and plan as above.
[2017-02-13] MEDS: *HR* Metoprolol 5 MG/5 ML VIAL IVP PRN ×2 (17:15→17:40)
[2017-02-14] MEDS: Levalbuterol Neb 1.25 MG/3 ML IH SCH ×2 (04:49→10:57)
[2017-02-14] MEDS: Ipratropium Neb 0.5 MG NEBULIZER IH SCH ×2 (04:49→10:56)
[2017-02-14 04:54] LABS: Hemoglobin 11.2 g/dL (12.9-16.9); Immature Granulocytes % 0.6 % (0-4)
[2017-02-14 04:56] LABS: Hematocrit 39.8 % (37.5-50.1); Lymphocytes # 0.5 K/mcL (0.6-4.6); Lymphocytes % 8.3 %; Mean Corpuscular HGB Conc 28.1 g/dL (31.6-35.5); Mean Corpuscular Hemoglobin 25.2 pg (28.0-33.3); Mean Corpuscular Volume 89.4 fL (83.0-100.0); Monocytes # 0.7 K/mcL (0.0-1.3); Monocytes % 10.3 %; Platelet Count 128 K/mcL (140-400); Red Blood Count 4.45 M/mcL (4.19-5.50); Red Cell Distribution Width 24.3 % (11.5-14.5); Segmented Neutrophils % 80.8 %
[2017-02-14] MEDS: *HR* Heparin 5,000 UNIT/ML VIAL SQ SCH (05:04)
[2017-02-14 05:05] LABS: Neutrophils # 5.3 K/mcL (1.6-8.9)
[2017-02-14 05:11] LABS: Alanine Aminotransferase 21 Units/L (0-55); Alkaline Phosphatase 53 Units/L (38-126); Aspartate Amino Transferase 15 Units/L (5-34); BUN/Creatinine Ratio 44 (6-26); Bilirubin,Direct 0.1 mg/dL (0.0-0.5); Bilirubin,Indirect 0.2 mg/dL (0.0-1.2); Bilirubin,Total 0.3 mg/dL (0.2-1.2); Blood Urea Nitrogen 32 mg/dL (8-26); Calcium 8.9 mg/dL (8.6-10.8); Chloride 96 mEq/L (98-109); Globulin 2.9 g/dL (2.4-3.5); Glucose 128 mg/dL (70-99); Magnesium 1.9 mg/dL (1.6-2.6); Osmolality,Calculated 305 (280-300); Potassium 4.4 mEq/L (3.5-4.5); Sodium 143 mEq/L (136-145); Total Protein 5.9 g/dL (6.0-8.3); eGFR For African Americans > 60 (> 60); eGFR For Non-African Americans > 60 (> 60)
[2017-02-14 05:19] LABS: Carbon Dioxide 43 mEq/L (19-29)
[2017-02-14 05:51] LABS: Anisocytosis 2+ (Not Present); Hypochromasia Present (Not Present)
[2017-02-14 05:52] LABS: Poikilocytosis 2+ (Not Present)
[2017-02-14] MEDS: Doxycycline 100 MG CAPSULE PO SCH (09:08)
[2017-02-14] MEDS: methylPREDNISolone 125 MG/2 ML VIAL IVP SCH (09:08)
--- NOTE | 2017-02-14 09:29 | Discharge Summary ---
Addendum entered and electronically signed by Joni Hernandez DO 02/14/17 16:20: Paroxysmal A-fib with [id number] Score = 3 (CHF, HTN and vascular disease). No known history of GI bleed or frequent fall at home. Anticoagulation is indicated. Will prescribe one-month of Xarelto and have patient follow up with cardiology regarding further management of rate control and anticoagulation. Original Note: <Joni Hernandez - Last Filed: 02/14/17 11:46> Date of Encounter: 02/14/17 Time of Encounter: 08:30 - Discharge Diagnosis (1) Respiratory failure with hypercapnia Priority: Primary Status: Acute Qualifiers: Chronicity: acute Qualified Code(s): J96.02 - Acute respiratory failure with hypercapnia (2) Acute exacerbation of chronic obstructive pulmonary disease (COPD) Priority: Primary Status: Acute (3) Paroxysmal a-fib Priority: Secondary Status: Acute (4) CHF (congestive heart failure) Priority: Secondary Status: Chronic Qualifiers: Congestive heart failure type: combined Congestive heart failure chronicity : chronic Qualified Code(s): I50.42 - Chronic combined systolic (congestive) and diastolic (congestive) heart failure (5) HTN (hypertension) Priority: Secondary Status: Chronic Qualifiers: Hypertension type: essential hypertension Qualified Code(s): I10 - Essential (primary) hypertension - Discharge Medications Prescriptions: Doxycycline 100 mg PO BID #4 cap Metoprolol [Lopressor] 100 mg PO TID #90 tablet predniSONE [PredniSONE] See Taper PO NOW #36 tablet Rivaroxaban [Xarelto] 20 mg PO DAILY #30 tablet Home Medications: Albuterol Sulfate [Ventolin Hfa] 2 puff IH Q4HR PRN 01/30/17 [History] Atorvastatin [Lipitor] 40 mg PO HS 01/30/17 [History] Cetirizine HCl [Zyrtec] 10 mg PO DAILY 01/30/17 [History] DULoxetine [Cymbalta] 30 mg PO DAILY 01/30/17 [History] Ferrous Sulfate [Iron] 325 mg PO TID 01/30/17 [History] Finasteride [Proscar] 5 mg PO DAILY 01/30/17 [History] Fluticasone/Salmeterol [Advair 500-50 Diskus] 1 puff IH BID 01/30/17 [History] Guaifenesin [Mucinex] 600 mg PO BID 01/30/17 [History] Ipratropium/Albuterol Neb [Duoneb] 3 ml IH Q6HR 01/30/17 [History] Lisinopril 2.5 mg PO DAILY 01/30/17 [History] Omeprazole 20 mg PO DAILY 01/30/17 [History] Oxycodone HCl 10 mg PO Q4H PRN 01/30/17 [History] Oxygen 5 l NS AD 01/30/17 [History] Pregabalin [Lyrica] 100 mg PO BID 01/30/17 [History] Primidone [Mysoline] 250 mg PO BID 01/30/17 [History] Roflumilast [Daliresp] 500 mcg PO DAILY 01/30/17 [History] Ropinirole HCl [Requip] 2 mg PO HS 01/30/17 [History] Tamsulosin [Flomax] 0.8 mg PO DAILY 01/30/17 [History] Spironolactone [Aldactone] 12.5 mg PO DAILY #0 01/31/17 [Rx] Tizanidine HCl [Zanaflex] 4 mg PO BID PRN #0 01/31/17 [Rx] predniSONE [PredniSONE] 40 mg PO DAILY 5 Days 01/31/17 [Rx] Doxycycline 100 mg PO BID #4 cap 02/14/17 [Rx] Metoprolol [Lopressor] 100 mg PO TID #90 tablet 02/14/17 [Rx] Rivaroxaban [Xarelto] 20 mg PO DAILY #30 tablet 02/14/17 [Rx] predniSONE [PredniSONE] See Taper PO NOW #36 tablet 02/14/17 [Rx] Allergies/Adverse Reactions: Allergies No Known Allergies Allergy (Verified 01/06/17 21:32) Procedures/tests Complete & Pending: Procedures Performed prior 72 hours Category Date Time Status EKG [ECG 12 lead ECG] [ECG] Stat Y 02/11/17 10:59 Completed Date of admission: 02/10/17 07:11 Primary care physician: PCP NO Consults: 02/10/17 07:59 Consult to Automotive Teacher [CONS] Routine Reason for SW Consult: home care and chronic copd 02/10/17 10:00 Consult to Nutrition [CONS] Routine Comment: Consulting Provider: NUTRITION Reason for Dietary Consult: TF Start and Manage Discharging clinician: Jean Marie Rivas Anticipated date of discharge: 02/14/17 - Patient Status Disposition: Home, Self-Care Condition: Fair Functional capacity at discharge: uses cane/walker Overall status at discharge: patient is progressing back to baseline - Discharge Instructions Instructions: Atrial Fibrillation (DC), Chronic Obstructive Pulmonary Disease ( DC) Follow Up With: Mitchell Lopez MD [Partnered Physician] - (Pt had cancelled 02/14/[address] Lopez because of his hospitalization. Pt needs to follow up with employment coordinator regarding his paroxysmal A-fib.) NO,PCP [Primary Care Provider] - () Bautista Chew MD [Partnered Physician] - 02/20/17 2:30 pm (Please follow up as schedule...) Additional Instructions: Please take prednisone taper (60 mg twice a day for 3 days, then 40 mg twice a day for 3 days and finally 20 mg twice a day for 3 days) Please take 2 more days of doxycycline (100 mg twice a day) to complete the whole course of antibiotic therapy. Please discontinue Toprol XL and start prescribed Lopressor 100 mg three times a day. Please take prescribed Xarelto as anticoagulation for your A-fib. Please follow up with Dr. Lopez of [place] cardi[facility] regarding further A-fib management. Please follow up with your primary care physician within a week about future breathing needs, possibility of BiPAP need overnight. PLEASE CALL AND SCHEDULE AN APPT WITHIN [address] LOPEZ. - Diet and Activity Activity: increase activity as tolerated Diet: low fat, low cholesterol Hospital course: Mr. Romo is a 61 year old male - Time Spent with Patient Total time spent providing and/or coordinating discharge services: Greater than 30 minutes (45 minutes) - Constitutional Vitals: Temp Pulse Resp BP Pulse Ox 98.5 F 84 16 139/67 98 02/14/17 07:59 02/14/17 07:59 02/14/17 07:59 02/14/17 07:59 02/14/17 07:59 <Jean Marie Rivas - Last Filed: 02/14/17 15:48> Date of Encounter: 02/14/17 - Discharge Diagnosis (1) Respiratory failure with hypercapnia Status: Acute Qualifiers: Chronicity: acute Qualified Code(s): J96.02 - Acute respiratory failure with hypercapnia (2) Acute exacerbation of chronic obstructive pulmonary disease Priority: Secondary Status: Acute (3) HTN (hypertension) Priority: Secondary Status: Chronic Qualifiers: Hypertension type: essential hypertension Qualified Code(s): I10 - Essential (primary) hypertension (4) CAD (coronary artery disease) Priority: Secondary Status: Chronic Qualifiers: Coronary Disease-Associated Artery/Lesion type: [place] artery [place] vs. transplanted heart: [place] heart Associated angina: without angina Qualified Code(s): I25.10 - Atherosclerotic heart disease of [place] coronary artery without angina pectoris (5) Tobacco abuse Priority: Secondary Status: Chronic (6) DVT prophylaxis Priority: Secondary Status: Inactive Date of admission: 02/10/17 07:11 Primary care physician: PCP NO Consults: 02/10/17 07:59 Consult to Automotive Teacher [CONS] Routine Reason for SW Consult: home care and chronic copd 02/10/17 10:00 Consult to Nutrition [CONS] Routine Comment: Consulting Provider: NUTRITION Reason for Dietary Consult: TF Start and Manage Hospital course: Mr. Romo is a 61 year old male with history of severe COPD, systolic heart failure presents to emergency department with complaint of shortness of breath. In the emergency department, patient was intubated secondary to respiratory failure and was unable to provide a history. Patient was saturating in 80s prior to intubation. Vital signs were within normal limits after intubation, with mild hypotension of 86/50. Lab results were significant for hypernatremia at 146, hyperkalemia at 5.0, increased CO2 of 48, thrombocytopenia of 79. Arterial blood gas reveals elevated PCO2 of 86 with P O2 low of 67 with a pH of 7.45, indicating a respiratory acidosis with metabolic compensation. Patient was admitted to ICU for hypercapnic respiratory failure requiring intubation. During course of Hospital stay patient received duo nebs, methylprednisone and Levaquin for possible underlying pneumonia. Chest x-ray performed was negative for pneumonia and Levaquin was changed to azithromycin. Patient was able to be extubated on 02/12 and was placed on CPAP. Patient was weaned off ventilatory support and was eventually able to tolerate his home oxygen levels of 4 L via nasal cannula. He was tapered off his methylprednisone and changed to by mouth prednisone with a outpatient taper. He was noted to be tachycardic with known history of atrial fibrillation, metoprolol dose was adjusted accordingly. On day of discharge, patient states that his breathing has not returned to his baseline level. He had no complaints of cough, fevers, chills. He was instructed to continue his antibiotic until completion which has been changed to doxycycline after sputum culture revealed gram positive rods. Smoking cessation was discussed as a possible exacerbating factor and patient understands. On day of discharge, patient was medically stable and instructed to follow up with his primary care physician, complete his home prescriptions and encouraged to stop smoking. - Time Spent with Patient Total time spent providing and/or coordinating discharge services: 40 minutes - Constitutional Vitals: Temp Pulse Resp BP Pulse Ox 98.5 F 93 14 117/64 96 02/14/17 11:43 02/14/17 11:43 02/14/17 11:43 02/14/17 11:43 02/14/17 11:43 Exam: Gen.: Vitals noted. No acute distress. AAOx3. Cachectic appearing male HEENT: PERRL/EOMI, oropharynx clear, Normocephalic, atraumatic Neck: Supple. No adenopathy. Cardiac: RRR, no murmur, +S1/S2 Pulmonary: Very mild end expiratory wheezes diffusely. no rales or rhonchi, equal chest expansion Abdomen: soft, nontender, BS noted, no guarding Back: Nontender throughout. MSK: ROM intact, no joint swelling noted Extremities: no BLE edema, nontender calf, no cyanosis or clubbing Neuro: A&Ox3, moves all extremities, no focal deficits Psych: Appropriate mood and behavior <Severo Castillo - Last Filed: 02/14/17 18:25> Date of Encounter: 02/14/17 Time of Encounter: 09:00 - Discharge Diagnosis (1) Respiratory failure with hypercapnia Status: Acute Qualifiers: Chronicity: acute Qualified Code(s): J96.02 - Acute respiratory failure with hypercapnia (2) Paroxysmal a-fib Status: Acute (3) Acute exacerbation of chronic obstructive pulmonary disease Status: Acute (4) CAD (coronary artery disease) Status: Chronic Qualifiers: Coronary Disease-Associated Artery/Lesion type: [place] artery [place] vs. transplanted heart: [place] heart Associated angina: without angina Qualified Code(s): I25.10 - Atherosclerotic heart disease of [place] coronary artery without angina pectoris (5) HTN (hypertension) Status: Chronic Qualifiers: Hypertension type: essential hypertension Qualified Code(s): I10 - Essential (primary) hypertension (6) Tobacco abuse Status: Chronic (7) Chronic respiratory failure with hypoxia Priority: Secondary Status: Chronic Date of admission: 02/10/17 07:11 Primary care physician: PCP NO Consults: 02/10/17 07:59 Consult to Automotive Teacher [CONS] Routine Reason for SW Consult: home care and chronic copd 02/10/17 10:00 Consult to Nutrition [CONS] Routine Comment: Consulting Provider: NUTRITION Reason for Dietary Consult: TF Start and Manage Hospital course: Mr. Romo is a 61 year old male - Time Spent with Patient Total time spent providing and/or coordinating discharge services: 37min - Constitutional Vitals: Temp Pulse Resp BP Pulse Ox 98.5 F 93 14 117/64 96 02/14/17 11:43 02/14/17 11:43 02/14/17 11:43 02/14/17 11:43 02/14/17 11:43 - Attending Attestation I examined this patient and my medical decision-making was reviewed with the Resident Physician on 02/14/17. I agree with the documented findings, disposition and treatment plan as described except to the extent set forth below. Mr. Romo has been admitted for acute resp failure. He was intubated and extubated without issue and has returned to his baseline status. He is afebrile with stable vitals. He is ready for discharge home. Exam Alert. Comfortable Mucus membranes dry Heart irreg Lungs diminished No edema Plan D/C home today Ellyn is 3 - started on Xarelto pending follow up with card and PCP. Metoprolol for rate control
[2017-02-14] MEDS: Budesonide/Formoterol 160/4.5 MDI IH SCH (10:57)
[2017-02-14 11:51] VITALS: BP 117/64
== END 2017-02-14 12:09 | disposition home or self-care (01) | DRG 208 ==
LOC: SUATTDRO 07:11 → ICNU 07:11 → 2ANU 02-12 12:34
PROVIDERS: ADMIT Internal Medicine; ATTEND Internal Medicine

== ENCOUNTER 2017-04-02 02:02 | Inpatient (IN) ==
[2017-04-02] MEDS ORDERED: FentaNYL (PF) 1,000 MCG in 0.9 % Sodium Chloride 80 ML IVC SCH (06:15)
[2017-04-02] MEDS ORDERED: 0.9 % Sodium Chloride 500 ML ONE (06:20)
[2017-04-02] MEDS ORDERED: 0.9 % Sodium Chloride 500 ML IVC ONE (06:23)
--- NOTE | 2017-04-02 06:24 | Internal Med History&Physical ---
Date of Encounter: 04/02/17 Time of Encounter: 06:15 Assessment and Plan (1) Acute and chronic respiratory failure Current visit: Yes Status: Acute Patient presented to [place] ER with acute exacerbation COPD and appeared to have elevated PCO2 and decreased pH Presentation. He was placed on BiPAP at that time and a repeat ABG performed later that showed worsening and patient respiratory status. At that point patient was intubated at [facility] and transferred to [facility] for continued management. Patient respiratory failure likely multifactorial from pneumonia, acute exacerbation COPD, and CHF. After arrival to [place] additional blood gas was taken which did show some improvement and patient respiratory status, patient was awake, without sedation and following directions at the time of assessment. Consider weaning mechanical ventilation if possible Start Levaquin, vancomycin, Zosyn Breathing treatments as needed when necessary 60 mg Solu-Medrol every 6 hours Patient artery received 2.5 L normal saline with history of CHF with ejection fraction of 40-45% Tylenol as needed for fever Blood cultures taken at [facility] Influenza, strep, Legionella antigens Sputum culture and respiratory culture Qualifiers: Respiratory failure complication: hypoxia and hypercapnia Qualified Code(s) : J96.21 - Acute and chronic respiratory failure with hypoxia; J96.22 - Acute and chronic respiratory failure with hypercapnia (2) Sepsis Current visit: Yes Status: Acute Patient originally presented to [facility] emergency room with description of increasing shortness of breath and coughing up thick mucus. Patient suffering from acute respiratory failure at that time requiring intubation after failure of BiPAP trial. At presentation patient had a fever of 101.1, had tachycardia, had tachypnea, and had leukocytosis. Chest x-ray performed at [facility] showed possible early pneumonia versus atelectasis (likely chronic). Possible reasons for patient sepsis are acute exacerbation of COPD and pneumonia. Plan as above Qualifiers: Sepsis type: sepsis due to unspecified organism Qualified Code(s): A41.9 - Sepsis, unspecified organism (3) Acute exacerbation of chronic obstructive pulmonary disease Current visit: No Status: Acute Patient has history of COPD there is a current smoker. Patient described shortness of breath and cough productive of tenacious thick sputum prior to requiring intubation at [place]. Although no wheezing auscultated on exam, patient had received 125 mg IV Solu-Medrol prior to presentation at [place]. Plan as above (4) Hypotension Current visit: Yes Status: Acute Patient blood pressure had been stable but after admission to the [place] ICU patient began to experience hypotension with systolic blood pressure in the 70s. He had already been given 2 L bolus saline. I have concerned the patient blood pressure will decrease further if sedation is used, will bolus patient additional 500 mL and consider low-dose sedation, as patient is mechanically ventilated without sedation. Continue to monitor vitals closely 500 ml NS bolus Dopamine gtt on standby for further decreased bp consider central line for more pressor support if needed Qualifiers: Hypotension type: unspecified hypotension type Qualified Code(s): I95.9 - Hypotension, unspecified (5) CHF (congestive heart failure) Current visit: No Status: Chronic Patient presents to [facility] with reports of difficulty in breathing and cough. He was found to have pulmonary edema on CXR. BNP drawn in [facility] was 249. Patient is currently intubated due to failure to improve and acute worsening of respiratory status while on Bipap. Consider reintroducing diuretics when patient hypotension resolves Qualifiers: Congestive heart failure type: unspecified congestive heart failure type Congestive heart failure chronicity: acute on chronic Qualified Code(s): I50.9 - Heart failure, unspecified (6) Anemia Current visit: No Status: Chronic Patient has hgb of 9.6 at [facility] last night. This is stable from his previous hgb of 9.5 when labs were drawn on 03/10/17. Continue to monitor via daily CBC Qualifiers: Anemia type: iron deficiency Iron deficiency anemia type: unspecified iron deficiency Qualified Code(s): D50.9 - Iron deficiency anemia, unspecified (7) CAD (coronary artery disease) Current visit: No Status: Chronic Stable. Initial trop negative. Patient EKG could represent chronic findings recommend comparison with old EKG. Continue to monitor via telemetry Qualifiers: Coronary Disease-Associated Artery/Lesion type: [place] artery [place] vs. transplanted heart: [place] heart Associated angina: without angina Qualified Code(s): I25.10 - Atherosclerotic heart disease of [place] coronary artery without angina pectoris (8) DVT prophylaxis Current visit: No Status: Acute Patient on Xarelto for chronic therapy Continue home xarelto (9) Tobacco abuse Current visit: No Status: Chronic Recommend smoking cessation Internal Medicine - H&P: HPI Chief complaint: Difficulty in breathing and cough Admitted From: Home Plans for Post Hospital Care: Home History of present illness: Mr. Romo is a 62 year old male with prior medical history of COPD, CHF, CAD , and hypertension who presents to [place] from [facility] ER after undergoing intubation. Patient intubated at the time of assessment, history obtained through chart review. Patient presented to [facility] ER in respiratory distress, complaining of difficulty breathing, and stating the cough productive of thick mucus. ABG performed without time showed acute on chronic respiratory failure with some metabolic compensation, he was placed on BiPAP at that time. ABG was drawn after trial of BiPAP that showed worsening of patient pH and PCO2. At that time he underwent intubation due to failure of BiPAP and was transferred to [place]. At the time assessment patient wakes to verbal stimuli and can follow some commands and is under no sedation. He is slightly hypotensive and has been given fluid boluses to maintain blood pressure. No wheezes were present on auscultation but patient had been given 125 mg Solu-Medrol in the ER [facility]. Past Med Surg Social Fam HX - Past Medical History Medical history: aortic aneurysm, cardiomyopathy, CHF, COPD, coronary artery disease, GI bleed, hyperlipidemia, hypertension, myocardial infarction, other Psychiatric history: no psych history - Past Surgical History Surgical History: angioplasty/stent - Social History Smoking Status: Current every day smoker Smokeless Tobacco Status: No Alcohol use: none Drug use: none - Family History Father Family Member Ethnicity: Non- Living Status: Hx Family Cardiac Disorders: Yes Hx Family Respiratory Disorders: No Hx Family Cancer: No Hx Family GI Disorders: No Hx Family Endocrine Disorder: No Hx Family Neuromuscular Disorders: No Hx Family Neurologic Disorders: No Hx Family HEENT Disorders: No Hx Family Autoimmune Disorders: No Mother Family Member Ethnicity: Non- Living Status: Hx Family Cardiac Disorders: Yes Hx Family Respiratory Disorders: Yes Hx Family Cancer: No Hx Family GI Disorders: No Hx Family Endocrine Disorder: Yes Hx Family Neuromuscular Disorders: No Hx Family Neurologic Disorders: No Hx Family HEENT Disorders: No Hx Family Autoimmune Disorders: No Internal Medicine - H&P: Meds Albuterol Sulfate [Ventolin Hfa] 2 puff IH Q4HR PRN 01/30/17 [History] Atorvastatin [Lipitor] 40 mg PO HS 01/30/17 [History] Cetirizine HCl [Zyrtec] 10 mg PO DAILY 01/30/17 [History] DULoxetine [Cymbalta] 30 mg PO DAILY 01/30/17 [History] Ferrous Sulfate [Iron] 325 mg PO TID 01/30/17 [History] Finasteride [Proscar] 5 mg PO DAILY 01/30/17 [History] Fluticasone/Salmeterol [Advair 500-50 Diskus] 1 puff IH BID 01/30/17 [History] Guaifenesin [Mucinex] 600 mg PO BID 01/30/17 [History] Ipratropium/Albuterol Neb [Duoneb] 3 ml IH Q6HR 01/30/17 [History] Lisinopril 2.5 mg PO DAILY 01/30/17 [History] Omeprazole 20 mg PO DAILY 01/30/17 [History] Oxycodone HCl 10 mg PO Q4H PRN 01/30/17 [History] Oxygen 5 l NS AD 01/30/17 [History] Pregabalin [Lyrica] 100 mg PO BID 01/30/17 [History] Primidone [Mysoline] 250 mg PO BID 01/30/17 [History] Roflumilast [Daliresp] 500 mcg PO DAILY 01/30/17 [History] Ropinirole HCl [Requip] 2 mg PO HS 01/30/17 [History] Tamsulosin [Flomax] 0.8 mg PO DAILY 01/30/17 [History] Spironolactone [Aldactone] 12.5 mg PO DAILY #0 01/31/17 [Rx] Tizanidine HCl [Zanaflex] 4 mg PO BID PRN #0 01/31/17 [Rx] predniSONE [PredniSONE] 40 mg PO DAILY 5 Days 01/31/17 [Rx] Doxycycline 100 mg PO BID #4 cap 02/14/17 [Rx] Metoprolol [Lopressor] 100 mg PO TID #90 tablet 02/14/17 [Rx] Rivaroxaban [Xarelto] 20 mg PO DAILY #30 tablet 02/14/17 [Rx] predniSONE [PredniSONE] See Taper PO NOW #36 tablet 02/14/17 [Rx] 3 Allergy/AdvReac Type Severity Reaction Status Date / Time No Known Allergies Allergy Verified 04/01/17 21:55 ROS unobtainable: due to endotracheal tube - Constitutional Vitals: Pulse Resp BP Pulse Ox 101 17 123/66 100 04/02/17 05:56 04/02/17 05:35 04/02/17 05:35 04/02/17 05:56 Exam: General: Patient intubated and mechanically ventilated, wakes to verbal stimuli , follows commands HEENT: Normocephalic, atraumatic, neck supple, trachea midline Respiratory: No accessory muscle usage, clear to auscultation bilaterally, no wheezes/rhonchi/rales appreciated Cardiovascular: Tachycardia, S1 and S2 present, no murmurs/rubs/gallops/clicks appreciated GI/abdominal: Nondistended, nontender, soft, normal bowel sounds, no peritoneal signs Extremities: No calf tenderness, noncyanotic, no pedal edema appreciated, warm, lower extremity pulses palpable and symmetrical Neurological: Alert and oriented 3, no facial droop, no focal deficits Skin: Dry, intact, normal color
[2017-04-02] MEDS ORDERED: Acetaminophen 325 MG TABLET PO PRN ×2 (06:28→08:51)
[2017-04-02] MEDS ORDERED: Naloxone 0.4 MG/ML INJ IVP PRN ×2 (06:28→08:51)
[2017-04-02] MEDS ORDERED: Lacri-Lube 3.5 GM TUBE BOTH EYES PRN (06:28)
[2017-04-02] MEDS ORDERED: Ondansetron 4 MG/2 ML VIAL IVP PRN ×2 (06:28→08:51)
[2017-04-02] MEDS ORDERED: Sennosides/Docusate Sodium TABLET PO PRN ×2 (06:39→08:51)
[2017-04-02] MEDS ORDERED: Acetaminophen 650 MG RECTAL SUPP RC PRN ×2 (06:46→08:51)
[2017-04-02] MEDS ORDERED: Ipratropium/Albuterol Neb 3 ML IH PRN ×2 (06:49→08:51)
[2017-04-02] MEDS ORDERED: Vancomycin 1,250 MG in D5% in Water 250 ML IVPB SCH ×2 (07:00→09:30)
[2017-04-02] MEDS ORDERED: Vancomycin (wt based) 1,000 MG VIAL IVPB SCH (07:00)
[2017-04-02] MEDS ORDERED: Levofloxacin 500 MG/100 ML 500 MG/100 ML BAG IVPB SCH (07:00)
--- NOTE | 2017-04-02 07:14 | Event Note ---
Date of Encounter: 04/02/17 Time of Encounter: 07:12 patient seen and examined with medical billing manager. Agree with assessment and plan
[2017-04-02] MEDS ORDERED: Lacri-Lube 3.5 GM TUBE BOTH EYES SCH (08:00)
[2017-04-02] MEDS ORDERED: Piperacillin/Tazobactam 3.375 GM in D5% in Water (Mini-Bag+) 100 ML IVPB SCH ×2 (08:00→16:00)
[2017-04-02] MEDS ORDERED: Ipratropium/Albuterol Neb 3 ML IH SCH (08:00)
[2017-04-02 08:48] LABS: Hemoglobin 8.1 g/dL (12.9-16.9); Immature Granulocytes % 0.3 % (0-4); Monocytes % 11.4 %
[2017-04-02 08:50] LABS: Basophils % 0.1 %; Lymphocytes # 0.7 K/mcL (0.6-4.6); Lymphocytes % 6.8 %; Mean Corpuscular Hemoglobin 26.8 pg (28.0-33.3); Mean Corpuscular Volume 99.3 fL (83.0-100.0); Monocytes # 1.1 K/mcL (0.0-1.3); Red Blood Count 3.02 M/mcL (4.19-5.50); Red Cell Distribution Width 17.6 % (11.5-14.5); Segmented Neutrophils % 81.4 %
[2017-04-02 08:53] LABS: Platelet Count 82 K/mcL (140-400)
[2017-04-02] MEDS ORDERED: Pantoprazole 40 MG VIAL IVP SCH (09:00)
[2017-04-02] MEDS ORDERED: Chlorhexidine Rinse 15 ML MOUTHWASH MM SCH (09:00)
[2017-04-02 09:03] LABS: BUN/Creatinine Ratio 27 (6-26); Blood Urea Nitrogen 20 mg/dL (8-26); Calcium 8.8 mg/dL (8.6-10.8); Chloride 99 mEq/L (98-109); Glucose 108 mg/dL (70-99); Magnesium 1.7 mg/dL (1.6-2.6); Osmolality,Calculated 301 (280-300); Phosphorous 3.1 mg/dL (2.3-4.7); Potassium 4.7 mEq/L (3.5-4.5); Sodium 144 mEq/L (136-145); eGFR For African Americans > 60 (> 60); eGFR For Non-African Americans > 60 (> 60)
[2017-04-02 09:07] LABS: Carbon Dioxide 40 mEq/L (19-29)
[2017-04-02 09:12] LABS: Anisocytosis 1+ (Not Present); Hypochromasia Present (Not Present); Platelet Estimate Decreased (Normal)
[2017-04-02] MEDS: Pantoprazole 40 MG VIAL IVP SCH (09:31)
[2017-04-02] MEDS: Ipratropium/Albuterol Neb 3 ML IH SCH ×4 (11:24→23:57)
[2017-04-02] MEDS: Nicotine 7 MG PATCH.TD24 TD SCH (11:32)
[2017-04-02] MEDS: methylPREDNISolone 125 MG/2 ML VIAL IM SCH ×2 (11:32→18:38)
[2017-04-02] MEDS ORDERED: methylPREDNISolone 125 MG/2 ML VIAL IM SCH (12:00)
[2017-04-02] MEDS ORDERED: *HR* LORazepam 2 MG/ML VIAL IVP ONE (12:45)
[2017-04-02] MEDS ORDERED: *HR* Midazolam HCl 5 MG/5 ML VIAL IVP ONE (12:45)
[2017-04-02] MEDS ORDERED: *HR* Succinylcholine 200 MG/10 ML VIAL IVP ONE (12:45)
--- NOTE | 2017-04-02 16:24 | Pulmonology Consult Note ---
<Aba Reveles M - Last Filed: 04/02/17 16:29> Date of Encounter: 04/02/17 Medications and Allergies Albuterol Sulfate [Ventolin Hfa] 2 puff IH Q4HR PRN 01/30/17 [History] Atorvastatin [Lipitor] 40 mg PO HS 01/30/17 [History] Cetirizine HCl [Zyrtec] 10 mg PO DAILY 01/30/17 [History] DULoxetine [Cymbalta] 30 mg PO DAILY 01/30/17 [History] Ferrous Sulfate [Iron] 325 mg PO TID 01/30/17 [History] Finasteride [Proscar] 5 mg PO DAILY 01/30/17 [History] Fluticasone/Salmeterol [Advair 500-50 Diskus] 1 puff IH BID 01/30/17 [History] Guaifenesin [Mucinex] 600 mg PO BID PRN 01/30/17 [History] Ipratropium/Albuterol Neb [Duoneb] 3 ml IH Q6HR 01/30/17 [History] Lisinopril 2.5 mg PO DAILY 01/30/17 [History] Omeprazole 20 mg PO DAILY 01/30/17 [History] Oxycodone HCl 10 mg PO Q4H PRN 01/30/17 [History] Oxygen 5 l NS AD 01/30/17 [History] Pregabalin [Lyrica] 100 mg PO BID 01/30/17 [History] Primidone [Mysoline] 250 mg PO BID 01/30/17 [History] Roflumilast [Daliresp] 500 mcg PO DAILY 01/30/17 [History] Ropinirole HCl [Requip] 2 mg PO HS 01/30/17 [History] Tamsulosin [Flomax] 0.8 mg PO DAILY 01/30/17 [History] Spironolactone [Aldactone] 12.5 mg PO DAILY #0 01/31/17 [Rx] Tizanidine HCl [Zanaflex] 4 mg PO BID PRN #0 01/31/17 [Rx] Metoprolol [Lopressor] 100 mg PO TID #90 tablet 02/14/17 [Rx] Rivaroxaban [Xarelto] 20 mg PO DAILY #30 tablet 02/14/17 [Rx] Furosemide [Lasix] 40 mg PO BID 04/02/17 [History] 3 Allergy/AdvReac Type Severity Reaction Status Date / Time No Known Allergies Allergy Verified 04/01/17 21:55 All Systems: A 10-system review of systems was performed and is negative for pertinent findings except as documented above in the HPI. Physical Examination Vital Signs: Vital Signs, Last 4 Hours Temp Pulse Resp BP Pulse Ox 04/02/17 16:00 97.8 F 122 22 138/73 96 04/02/17 15:50 17 100 Results - Laboratory Findings CBC and BMP: 04/02/17 08:40 04/02/17 08:40 Abnormal lab findings: Abnormal lab results RBC 3.02 M/mcL (4.19-5.50) L 04/02/17 08:40 Hgb 8.1 g/dL (12.9-16.9) L D 04/02/17 08:40 Hct 30.0 % (37.5-50.1) L 04/02/17 08:40 MCH 26.8 pg (28.0-33.3) L 04/02/17 08:40 MCHC 27.0 g/dL (31.6-35.5) L 04/02/17 08:40 RDW 17.6 % (11.5-14.5) H 04/02/17 08:40 Plt Count 82 K/mcL (140-400) L 04/02/17 08:40 Platelet Estimate Decreased (Normal) L 04/02/17 08:40 Hypochromasia Present (Not Present) A 04/02/17 08:40 Anisocytosis 1+ (Not Present) A 04/02/17 08:40 Potassium 4.7 mEq/L (3.5-4.5) H 04/02/17 08:40 Carbon Dioxide 40 mEq/L (19-29) H* 04/02/17 08:40 BUN/Creatinine Ratio 27 (6-26) H 04/02/17 08:40 Glucose 108 mg/dL (70-99) H 04/02/17 08:40 POC Glucose 172 (58-89) H 04/02/17 05:38 Calculated Osmolality 301 (280-300) H 04/02/17 08:40 - Clinical Findings Intake & Output: Intake & Output 04/02/17 04/02/17 04/02/17 07:59 15:59 23:59 Intake Total 500 / 500 0 / 0 200 / 200 Output Total 275 / 275 250 / 250 350 / 350 Balance 225 / 225 -250 / -250 -150 / -150 Weight 70.4 kg Consult Discharge Plan - Plan Referrals: NONE,PCP [Primary Care Provider] - - Attending Attestation I examined this patient and my medical decision-making was reviewed with the Resident Physician. I agree with the documented findings, disposition and treatment plan as described except to the extent set forth below. Patient seen and examined. Labs, radiology, chart personally reviewed. Agree with resident's history and physical, assessment, plan with following comments: [employer]: Patient follows commands, Pulmonary: Acceptable oxygenation and ventilation. Seen patient in the morning and he was following command and extubated patient to BiPAP. Patient has periods of apneas which it seems to be intentional and he is tolerating noninvasive ventilation. I will treat him as acute exacerbation of COPD and patient was counseled to quit smoking. Cardiovascular: stable GI: Nutrition per dietary and GI prophylaxis per routine Heme: DVT prophylaxis per routine ID: Continue antibiotics and plan to de-escalation Renal; urine out put and renal funtion reviewed Endorcine: blood glucose is monitored Lines: all lines checked and no evidence of infections Skin: skin care to prevent pressure ulcers per nursing routine care Patient remained stable to be transferred to the floor <Rahul Nielsen - Last Filed: 04/02/17 17:16> Date of Encounter: 04/02/17 Time of Encounter: 12:00 Assessment and Plan (1) COPD (chronic obstructive pulmonary disease) Current Visit: No Status: Chronic Patient is extubated and on BiPAP. He has acute exacerbation of COPD. We will continue him on levofloxacin and discontinue the Zosyn and Vanco. Started Solu- Medrol 60 mg every 6 hours. Continue nebulizer. Patient will be transferred to the floor. Qualifiers: COPD type: COPD with acute exacerbation Qualified Code(s): J44.1 - Chronic obstructive pulmonary disease with (acute) exacerbation (2) CHF (congestive heart failure) Current Visit: No Status: Chronic Patient is extubated and will be transferred to the floor. He can start his diuretic once he is transferred. Qualifiers: Congestive heart failure type: unspecified congestive heart failure type Congestive heart failure chronicity: acute on chronic Qualified Code(s): I50.9 - Heart failure, unspecified (3) Sepsis Current Visit: Yes Status: Acute Patient's fever is resolved. He continues to be tachycardic but no longer dyspneic. He is doing well on BiPAP trial. Leukocytosis is resolved. Continue Levaquin, stop Vanco and Zosyn. We will believe his symptoms are caused by acute exacerbation of COPD. Patient can be transferred to the floor Qualifiers: Sepsis type: sepsis due to unspecified organism Qualified Code(s): A41.9 - Sepsis, unspecified organism (4) Tobacco abuse Current Visit: No Status: Chronic Educated patient on importance of smoking cessation. Started nicotine patch. (5) DVT prophylaxis Current Visit: No Status: Acute Patient on Moya for chronic therapy. Can continue home ulcer alto after transfer. History of Present Illness Consult date: 04/02/17 Reason for consult: dyspnea (respiratory failure ) Chief complaint: Respiratory distress History of present illness: 62-year-old male with prior medical history of COPD, CHF, CAD, and hypertension presented to [place] from [place] emergency medicine after undergoing intubation. The patient presented to [place] ER in respiratory distress, complaining of dyspnea, and stating cough productive of thick mucus. ABG at [place] showed acute on chronic respiratory failure with some metabolic compensation. He failed the trial bipap and was eventually intubated and transferred to [place]. ABG at [place] showed improvement. Patient is alert and oriented 3 without sedation and follows directions. Patient is to be extubated. Past Med Surg Social Fam HX - Past Medical History Medical history: aortic aneurysm, cardiomyopathy, CHF, COPD, coronary artery disease, GI bleed, hyperlipidemia, hypertension, myocardial infarction, other Psychiatric history: no psych history - Past Surgical History Surgical History: angioplasty/stent - Social History Smoking Status: Current every day smoker Smokeless Tobacco Status: No Alcohol use: none Drug use: none - Family History Father Family Member Ethnicity: Non- Living Status: Hx Family Cardiac Disorders: Yes Hx Family Respiratory Disorders: No Hx Family Cancer: No Hx Family GI Disorders: No Hx Family Endocrine Disorder: No Hx Family Neuromuscular Disorders: No Hx Family Neurologic Disorders: No Hx Family HEENT Disorders: No Hx Family Autoimmune Disorders: No Mother Family Member Ethnicity: Non- Living Status: Hx Family Cardiac Disorders: Yes Hx Family Respiratory Disorders: Yes Hx Family Cancer: No Hx Family GI Disorders: No Hx Family Endocrine Disorder: Yes Hx Family Neuromuscular Disorders: No Hx Family Neurologic Disorders: No Hx Family HEENT Disorders: No Hx Family Autoimmune Disorders: No ROS unobtainable: due to endotracheal tube All Systems: A 10-system review of systems was performed and is negative for pertinent findings except as documented above in the HPI. Physical Examination Vital Signs: Vital Signs, Last 4 Hours Temp Pulse Resp BP Pulse Ox 04/02/17 16:00 97.8 F 122 22 138/73 96 04/02/17 15:50 17 100 General appearance: no acute distress Eyes: nonicteric Neck: supple Effort: mildly labored Auscultation: bilateral: wheezes Cardiovascular: other (Tachycardic) Gastrointestinal: normoactive bowel sounds, soft, non-distended Integumentary: normal Extremities: no cyanosis, no edema, no clubbing Musculoskeletal: no deformities normal mental status, non-focal exam mood appropriate Results - Laboratory Findings CBC and BMP: 04/02/17 08:40 04/02/17 08:40 Abnormal lab findings: Abnormal lab results RBC 3.02 M/mcL (4.19-5.50) L 04/02/17 08:40 Hgb 8.1 g/dL (12.9-16.9) L D 04/02/17 08:40 Hct 30.0 % (37.5-50.1) L 04/02/17 08:40 MCH 26.8 pg (28.0-33.3) L 04/02/17 08:40 MCHC 27.0 g/dL (31.6-35.5) L 04/02/17 08:40 RDW 17.6 % (11.5-14.5) H 04/02/17 08:40 Plt Count 82 K/mcL (140-400) L 04/02/17 08:40 Platelet Estimate Decreased (Normal) L 04/02/17 08:40 Hypochromasia Present (Not Present) A 04/02/17 08:40 Anisocytosis 1+ (Not Present) A 04/02/17 08:40 Potassium 4.7 mEq/L (3.5-4.5) H 04/02/17 08:40 Carbon Dioxide 40 mEq/L (19-29) H* 04/02/17 08:40 BUN/Creatinine Ratio 27 (6-26) H 04/02/17 08:40 Glucose 108 mg/dL (70-99) H 04/02/17 08:40 POC Glucose 172 (58-89) H 04/02/17 05:38 Calculated Osmolality 301 (280-300) H 04/02/17 08:40 - Clinical Findings Intake & Output: Intake & Output 04/02/17 04/02/17 04/02/17 07:59 15:59 23:59 Intake Total 500 / 500 0 / 0 200 / 200 Output Total 275 / 275 250 / 250 350 / 350 Balance 225 / 225 -250 / -250 -150 / -150 Weight 70.4 kg
[2017-04-02] MEDS ORDERED: tiZANidine 4 MG TABLET PO PRN (21:20)
[2017-04-02] MEDS: *HR* OxyCODONE Immed Rel 5 MG TABLET PO PRN (21:34)
[2017-04-03] MEDS: methylPREDNISolone 125 MG/2 ML VIAL IM SCH ×2 (00:28→06:09)
[2017-04-03] MEDS: Ipratropium/Albuterol Neb 3 ML IH SCH ×3 (04:43→10:57)
[2017-04-03 04:57] LABS: Alanine Aminotransferase 12 Units/L (0-55); Albumin 2.5 g/dL (3.5-5.0); Albumin/Globulin Ratio 0.8 (1.1-2.2); Alkaline Phosphatase 52 Units/L (38-126); Aspartate Amino Transferase 9 Units/L (5-34); BUN/Creatinine Ratio 32 (6-26); Blood Urea Nitrogen 20 mg/dL (8-26); Calcium 9.1 mg/dL (8.6-10.8); Chloride 96 mEq/L (98-109); Globulin 3.2 g/dL (2.4-3.5); Glucose 107 mg/dL (70-99); Osmolality,Calculated 295 (280-300); Potassium 4.9 mEq/L (3.5-4.5); Sodium 141 mEq/L (136-145); Total Protein 5.7 g/dL (6.0-8.3); eGFR For African Americans > 60 (> 60); eGFR For Non-African Americans > 60 (> 60)
[2017-04-03 04:59] LABS: Bilirubin,Total < 0.2 mg/dL (0.2-1.2)
[2017-04-03 05:00] LABS: Carbon Dioxide 41 mEq/L (19-29)
[2017-04-03 05:17] LABS: ABG HCO3 53 mEq/L (21-27); ABG Oxygen Saturation 97 % (95-98); ABG PH 7.37 pH Units (7.32-7.45); ABG PO2 93 mmHg (85-104); ABG TCO2 55.4 mEq/L (20-26)
[2017-04-03 05:20] LABS: ABG PCO2 91 mmHg (35-45); Blood Gas FiO2 36 %
[2017-04-03] MEDS: Levofloxacin 500 MG/100 ML 500 MG/100 ML BAG IVPB SCH (06:10)
[2017-04-03] MEDS: Pantoprazole 40 MG VIAL IVP SCH (08:34)
[2017-04-03] MEDS: Finasteride 5 MG TABLET PO SCH (08:34)
[2017-04-03] MEDS: Furosemide 40 MG TABLET PO SCH ×2 (08:35→16:58)
[2017-04-03] MEDS: Nicotine 7 MG PATCH.TD24 TD SCH (08:35)
[2017-04-03] MEDS: Spironolactone 25 MG TABLET PO SCH (08:35)
[2017-04-03] MEDS: (Roflumilast [Daliresp] 500 MCG) PO SCH (08:36)
[2017-04-03] MEDS: Metoprolol 100 MG TABLET PO SCH ×3 (08:36→21:37)
[2017-04-03] MEDS: *HR* OxyCODONE Immed Rel 5 MG TABLET PO PRN ×3 (08:44→18:57)
[2017-04-03] MEDS ORDERED: Budesonide/Formoterol 160/4.5 MDI IH SCH (09:00)
--- NOTE | 2017-04-03 11:33 | Pulmonology Progress Note ---
<Emelyn Bowens - Last Filed: 04/03/17 11:30> Date of Encounter: 04/03/17 Assessment and Plan (1) COPD (chronic obstructive pulmonary disease) Current Visit: No Status: Chronic Acute exacerbation of COPD. The patient is currently extubated and on BIPAP. Continue levofloxacin, predinsone, nebulizer. Patient will be transferred to the floor. Qualifiers: COPD type: COPD with acute exacerbation Qualified Code(s): J44.1 - Chronic obstructive pulmonary disease with (acute) exacerbation (2) CHF (congestive heart failure) Current Visit: No Status: Chronic history of CHF. Continue home medications of furosemide, metoprolol, spironolactone, lisinopril. Qualifiers: Congestive heart failure type: unspecified congestive heart failure type Congestive heart failure chronicity: acute on chronic Qualified Code(s): I50.9 - Heart failure, unspecified (3) Tobacco abuse Current Visit: No Status: Chronic The patient was educated on importance of smoking cessation. Started nicotine patch. (4) Sepsis Current Visit: Yes Status: Acute Most likely due to COPD exacerbation. Patient is afebrile. Continues to be tachycardic but not dyspneic. On BIPAP. Continue levofloxacin. Patient will go to floor. Qualifiers: Sepsis type: sepsis due to unspecified organism Qualified Code(s): A41.9 - Sepsis, unspecified organism (5) DVT prophylaxis Current Visit: No Status: Acute Heparin will be started Subjective Principal diagnosis: COPD exacerbation Interval history: No overnight events, continue BIPAP, tolerating oral diet well. No bowel movement. Catheter is draining clar yellow fluid. Patient has no complaints at this time. Objective PUL Vital signs: Last Vital Signs Temp 98.4 F 04/03/17 11:23 Pulse 112 04/03/17 08:00 Resp 16 04/03/17 10:59 BP 155/75 04/03/17 08:00 Pulse Ox 98 04/03/17 10:59 General appearance: no acute distress Eyes: nonicteric Neck: supple Auscultation: bilateral: wheezes, rhonchi Cardiovascular: regular rate and rhythm Gastrointestinal: normoactive bowel sounds, soft, non-tender Extremities: no cyanosis, no edema, no clubbing Musculoskeletal: no deformities Gait: normal posture normal mental status mood appropriate Results - Laboratory Findings CBC and BMP: 04/02/17 08:40 04/03/17 04:25 ABG ABG pH 7.37 pH Units (7.32-7.45) 04/03/17 05:08 ABG pCO2 91 mmHg (35-45) H* 04/03/17 05:08 ABG pO2 93 mmHg (85-104) 04/03/17 05:08 ABG O2 Saturation 97 % (95-98) 04/03/17 05:08 Abnormal lab findings: Abnormal lab results RBC 3.02 M/mcL (4.19-5.50) L 04/02/17 08:40 Hgb 8.1 g/dL (12.9-16.9) L D 04/02/17 08:40 Hct 30.0 % (37.5-50.1) L 04/02/17 08:40 MCH 26.8 pg (28.0-33.3) L 04/02/17 08:40 MCHC 27.0 g/dL (31.6-35.5) L 04/02/17 08:40 RDW 17.6 % (11.5-14.5) H 04/02/17 08:40 Plt Count 82 K/mcL (140-400) L 04/02/17 08:40 Platelet Estimate Decreased (Normal) L 04/02/17 08:40 Hypochromasia Present (Not Present) A 04/02/17 08:40 Anisocytosis 1+ (Not Present) A 04/02/17 08:40 ABG pCO2 91 mmHg (35-45) H* 04/03/17 05:08 ABG HCO3 53 mEq/L (21-27) H 04/03/17 05:08 ABG Total CO2 55.4 mEq/L (20-26) H 04/03/17 05:08 ABG Base Excess 24.0 mEq/L (-2.0 to 3.0) H 04/03/17 05:08 Potassium 4.9 mEq/L (3.5-4.5) H 04/03/17 04:25 Chloride 96 mEq/L (98-109) L 04/03/17 04:25 Carbon Dioxide 41 mEq/L (19-29) H* 04/03/17 04:25 Creatinine 0.63 mg/dL (0.72-1.25) L 04/03/17 04:25 BUN/Creatinine Ratio 32 (6-26) H 04/03/17 04:25 Glucose 107 mg/dL (70-99) H 04/03/17 04:25 POC Glucose 172 (58-89) H 04/02/17 05:38 Total Bilirubin < 0.2 mg/dL (0.2-1.2) L 04/03/17 04:25 Serum Total Protein 5.7 g/dL (6.0-8.3) L 04/03/17 04:25 Albumin 2.5 g/dL (3.5-5.0) L D 04/03/17 04:25 Albumin/Globulin Ratio 0.8 (1.1-2.2) L 04/03/17 04:25 - Clinical Findings Intake & Output: Intake & Output 04/02/17 04/03/17 04/03/17 23:59 07:59 15:59 Intake Total 200 / 200 100 / 100 240 / 240 Output Total 500 / 500 350 / 350 1200 / 1200 Balance -300 / -300 -250 / -250 -960 / -960 Weight 71.1 kg 71.1 kg Consult Discharge Plan - Plan Referrals: NONE,PCP [Primary Care Provider] - <Aba Reveles - Last Filed: 04/03/17 16:30> Date of Encounter: 04/03/17 Time of Encounter: 07:00 Objective PUL Vital signs: Last Vital Signs Temp 98.4 F 04/03/17 11:23 Pulse 84 04/03/17 12:00 Resp 14 04/03/17 12:00 BP 95/59 04/03/17 12:00 Pulse Ox 95 04/03/17 12:00 Results - Laboratory Findings CBC and BMP: 04/02/17 08:40 04/03/17 04:25 ABG ABG pH 7.37 pH Units (7.32-7.45) 04/03/17 05:08 ABG pCO2 91 mmHg (35-45) H* 04/03/17 05:08 ABG pO2 93 mmHg (85-104) 04/03/17 05:08 ABG O2 Saturation 97 % (95-98) 04/03/17 05:08 Abnormal lab findings: Abnormal lab results RBC 3.02 M/mcL (4.19-5.50) L 04/02/17 08:40 Hgb 8.1 g/dL (12.9-16.9) L D 04/02/17 08:40 Hct 30.0 % (37.5-50.1) L 04/02/17 08:40 MCH 26.8 pg (28.0-33.3) L 04/02/17 08:40 MCHC 27.0 g/dL (31.6-35.5) L 04/02/17 08:40 RDW 17.6 % (11.5-14.5) H 04/02/17 08:40 Plt Count 82 K/mcL (140-400) L 04/02/17 08:40 Platelet Estimate Decreased (Normal) L 04/02/17 08:40 Hypochromasia Present (Not Present) A 04/02/17 08:40 Anisocytosis 1+ (Not Present) A 04/02/17 08:40 ABG pCO2 91 mmHg (35-45) H* 04/03/17 05:08 ABG HCO3 53 mEq/L (21-27) H 04/03/17 05:08 ABG Total CO2 55.4 mEq/L (20-26) H 04/03/17 05:08 ABG Base Excess 24.0 mEq/L (-2.0 to 3.0) H 04/03/17 05:08 Potassium 4.9 mEq/L (3.5-4.5) H 04/03/17 04:25 Chloride 96 mEq/L (98-109) L 04/03/17 04:25 Carbon Dioxide 41 mEq/L (19-29) H* 04/03/17 04:25 Creatinine 0.63 mg/dL (0.72-1.25) L 04/03/17 04:25 BUN/Creatinine Ratio 32 (6-26) H 04/03/17 04:25 Glucose 107 mg/dL (70-99) H 04/03/17 04:25 POC Glucose 172 (58-89) H 04/02/17 05:38 Total Bilirubin < 0.2 mg/dL (0.2-1.2) L 04/03/17 04:25 Serum Total Protein 5.7 g/dL (6.0-8.3) L 04/03/17 04:25 Albumin 2.5 g/dL (3.5-5.0) L D 04/03/17 04:25 Albumin/Globulin Ratio 0.8 (1.1-2.2) L 04/03/17 04:25 - Clinical Findings Intake & Output: Intake & Output 04/03/17 04/03/17 04/03/17 07:59 15:59 23:59 Intake Total 100 / 100 600 / 600 Output Total 350 / 350 1300 / 1300 Balance -250 / -250 -700 / -700 Weight 71.1 kg 71.1 kg - Attending Attestation I examined this patient and my medical decision-making was reviewed with the Resident Physician. I agree with the documented findings, disposition and treatment plan as described except to the extent set forth below. Patient seen and examined. Labs, radiology, chart personally reviewed. Agree with resident's history and physical, assessment, plan with following comments: FUSION ANALYST: Patient follows commands, Pulmonary: Acceptable oxygenation and ventilation. Transition to oral steroid and bronchodilators Cardiovascular: stable GI: Nutrition per dietary and GI prophylaxis per routine Heme: DVT prophylaxis per routine ID: Continue antibiotics and plan to de-escalation Renal; urine out put and renal funtion reviewed Endorcine: blood glucose is monitored Lines: all lines checked and no evidence of infections Skin: skin care to prevent pressure ulcers per nursing routine care Patient remained hemodynamically stable and awaiting to be transferred to the floor.
[2017-04-03] MEDS ORDERED: Levalbuterol 1 PUFF INHALER IH PRN (11:45)
[2017-04-03] MEDS ORDERED: predniSONE 20 MG TABLET PO SCH (11:45)
[2017-04-03] MEDS: *HR* Heparin 5,000 UNIT/ML VIAL SQ SCH ×2 (12:22→16:58)
[2017-04-03] MEDS: rOPINIRole 1 MG TABLET PO SCH (21:37)
[2017-04-03] MEDS: Levalbuterol Neb 1.25 MG/3 ML IH SCH (23:00)
[2017-04-03] MEDS: Budesonide/Formoterol 160/4.5 MDI IH SCH (23:01)
[2017-04-04] MEDS: Levalbuterol Neb 1.25 MG/3 ML IH SCH ×4 (04:32→22:34)
[2017-04-04 06:28] LABS: Eosinophils % 0.4 %; Hemoglobin 7.6 g/dL (12.9-16.9); Immature Granulocytes % 0.4 % (0-4)
[2017-04-04 06:30] LABS: Hematocrit 27.2 % (37.5-50.1); Lymphocytes # 0.9 K/mcL (0.6-4.6); Lymphocytes % 17.8 %; Mean Corpuscular HGB Conc 27.9 g/dL (31.6-35.5); Mean Corpuscular Volume 96.5 fL (83.0-100.0); Mean Platelet Volume 13.1 fL (9.4-12.4); Monocytes # 0.6 K/mcL (0.0-1.3); Neutrophils # 3.6 K/mcL (1.6-8.9); Red Blood Count 2.82 M/mcL (4.19-5.50); Red Cell Distribution Width 17.3 % (11.5-14.5); Segmented Neutrophils % 69.4 %
[2017-04-04 06:40] LABS: BUN/Creatinine Ratio 23 (6-26); Blood Urea Nitrogen 14 mg/dL (8-26); Calcium 9.2 mg/dL (8.6-10.8); Chloride 93 mEq/L (98-109); Glucose 99 mg/dL (70-99); Osmolality,Calculated 297 (280-300); Sodium 143 mEq/L (136-145); eGFR For African Americans > 60 (> 60); eGFR For Non-African Americans > 60 (> 60)
[2017-04-04 06:41] LABS: Potassium 3.8 mEq/L (3.5-4.5)
[2017-04-04 06:43] LABS: Carbon Dioxide 45 mEq/L (19-29)
[2017-04-04] MEDS: Levofloxacin 500 MG/100 ML 500 MG/100 ML BAG IVPB SCH (06:47)
[2017-04-04 07:14] LABS: Platelet Count 98 K/mcL (140-400)
[2017-04-04 07:15] LABS: Hypochromasia Present (Not Present); Platelet Estimate Slight Decrease (Normal)
[2017-04-04] MEDS: *HR* Heparin 5,000 UNIT/ML VIAL SQ SCH ×2 (07:35→16:58)
--- NOTE | 2017-04-04 08:03 | Internal Med Progress Note ---
Date of Encounter: 04/04/17 Time of Encounter: 08:01 - Assessment and plan (1) Acute on chronic respiratory failure with hypoxemia Current Visit: Yes Status: Acute Assessment and plan: s/p VDRF on 04/03/17 Due to Pneumonia Reviewed ABG from y/d Imporiving slowly Will check ABG now will check f/u CXR today Still need high dose IV steroids due to severe TY / Wheezing Will use BiPAP continuously for another 24hrs.. will take him off the BiPAP to eat Cont abx and O2 (2) Acute on chronic respiratory failure with hypercapnia Current Visit: Yes Status: Acute Assessment and plan: he did have chronic hyperapneic resp failure cont close monitoring for now cont BiPAP (3) Sepsis Current Visit: Yes Status: Acute Assessment and plan: Did qualify upon admission improving Qualifiers: Sepsis type: sepsis due to unspecified organism Qualified Code(s): A41.9 - Sepsis, unspecified organism (4) Pneumonia Current Visit: No Status: Acute Assessment and plan: bacterial pnuemonia so far blood cx no growth f/u on sputum cx Qualifiers: Pneumonia type: due to unspecified organism Laterality: right Lung location: upper lobe of lung Qualified Code(s): J18.1 - Lobar pneumonia, unspecified organism (5) Acute exacerbation of chronic obstructive airways disease Current Visit: No Status: Acute Assessment and plan: see above (6) 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 Visit: Yes Status: Chronic Assessment and plan: Did reviewed 2 D Echo from 01/07/2017 Showing LVEF 40-45%, Mild diastolic dysfunction Mostly ischemic cardiomyopathy not in exacerbation resumed all home meds cont Lasix + Aldactone PO Qualifiers: Heart failure chronicity: chronic Qualified Code(s): I50.42 - Chronic combined systolic (congestive) and diastolic (congestive) heart failure (7) HTN (hypertension) Current Visit: No Status: Chronic Assessment and plan: stable with home meds Qualifiers: Hypertension type: essential hypertension Qualified Code(s): I10 - Essential (primary) hypertension (8) CAD (coronary artery disease) Current Visit: No Status: Chronic Assessment and plan: resumed home meds Qualifiers: Coronary Disease-Associated Artery/Lesion type: [place] artery [place] vs. transplanted heart: [place] heart Associated angina: without angina Qualified Code(s): I25.10 - Atherosclerotic heart disease of [place] coronary artery without angina pectoris - Subjective Interval history: Mr. Romo is a 62 year old male with prior medical history of COPD, CHF, CAD , and hypertension who presents to [facility] from [place] [facility] after undergoing intubation. Patient intubated at the time of assessment, history obtained through chart review. Patient presented to [place] [facility] in respiratory distress, complaining of difficulty breathing, and stating the cough productive of thick mucus. ABG performed without time showed acute on chronic respiratory failure with some metabolic compensation, he was placed on BiPAP at that time. ABG was drawn after trial of BiPAP that showed worsening of patient pH and PCO2. At that time he underwent intubation due to failure of BiPAP and was transferred to [facility]. Pt was admitted to ICU initially. He got extubated y/d and palced him on BiPAP which he has been tolerating well so far. Pt was transferred to [facility] y/d. He still has BiPAP on. More alert, awake and O x 3. Denied any CP. Still has moderate TY / SOB. Cough with expectoration. - Constitutional Vitals: Temp Pulse Resp BP Pulse Ox 98.1 F 98 18 128/65 95 04/04/17 07:17 04/04/17 07:17 04/04/17 07:17 04/04/17 07:17 04/04/17 07:17 General appearance: Present: mild distress, A&O X 3, answers questions appropriately - Head Head exam: Present: atraumatic, normal inspection - Respiratory Respiratory exam: Present: decreased breath sounds, respiratory distress (mild) , wheezes (moderate). Absent: rales, rhonchi, tachypnea - Cardiovascular Cardiovascular exam: Present: RRR, +S1, +S2. Absent: systolic murmur - GI/Abdominal GI/Abdominal exam: Present: normal bowel sounds, soft. Absent: rebound, rigid, tenderness - Extremities Exam Extremities exam: Absent: calf tenderness, pedal edema, tenderness - Neurological Exam Neurological exam: Present: alert, oriented X3 - Psychiatric Psychiatric exam: Present: normal affect, normal mood Internal Medicine: Result - Labs CBC & Chem 7: 04/04/17 06:20 04/04/17 06:20 Labs: Short CBC 04/04/17 Range/Units 06:20 WBC 5.2 (4.3-11.1) K/mcL Hgb 7.6 L (12.9-16.9) g/dL Hct 27.2 L (37.5-50.1) % Plt Count 98 L (140-400) K/mcL Neutrophils # 3.6 (1.6-8.9) K/mcL BMP 04/04/17 06:20 Sodium 143 Potassium 3.8 D Chloride 93 L Carbon Dioxide 45 H* BUN 14 Creatinine 0.61 L Glucose 99 Calcium 9.2 - ABG Interpretation ABG results: ABG ABG pH 7.37 pH Units (7.32-7.45) 04/03/17 05:08 ABG pCO2 91 mmHg (35-45) H* 04/03/17 05:08 ABG pO2 93 mmHg (85-104) 04/03/17 05:08 ABG O2 Saturation 97 % (95-98) 04/03/17 05:08 Consult Discharge Plan - Plan Referrals: NONE,PCP [Primary Care Provider] -
[2017-04-04] MEDS: *HR* OxyCODONE Immed Rel 5 MG TABLET PO PRN ×2 (08:18→21:11)
[2017-04-04] MEDS: Metoprolol 100 MG TABLET PO SCH ×3 (08:18→20:50)
[2017-04-04] MEDS: Finasteride 5 MG TABLET PO SCH (08:19)
[2017-04-04] MEDS: Pantoprazole 40 MG VIAL IVP SCH (08:19)
[2017-04-04] MEDS: (Roflumilast [Daliresp] 500 MCG) PO SCH (08:19)
[2017-04-04] MEDS: Furosemide 40 MG TABLET PO SCH ×2 (08:19→16:58)
[2017-04-04] MEDS: Nicotine 7 MG PATCH.TD24 TD SCH (08:19)
[2017-04-04] MEDS: Spironolactone 25 MG TABLET PO SCH (08:19)
[2017-04-04] MEDS: MethylPREDNISolone 40 MG/ML VIAL IVP SCH ×3 (08:22→23:28)
[2017-04-04] MEDS: Budesonide/Formoterol 160/4.5 MDI IH SCH ×2 (10:05→22:34)
[2017-04-04 10:10] LABS: ABG Base Excess 24.1 mEq/L (-2.0 to 3.0); ABG HCO3 53 mEq/L (21-27); ABG Oxygen Saturation 98 % (95-98); ABG PH 7.35 pH Units (7.32-7.45); ABG PO2 114 mmHg (85-104); ABG TCO2 55.9 mEq/L (20-26)
[2017-04-04 10:18] LABS: ABG PCO2 96 mmHg (35-45); Blood Gas Liter Flow 4 L/MIN
[2017-04-04] MEDS ORDERED: Albuterol 2.5 MG/3 ML NEBULIZER IH PRN (13:27)
[2017-04-04] MEDS: rOPINIRole 1 MG TABLET PO SCH (20:50)
[2017-04-05] MEDS: Levalbuterol Neb 1.25 MG/3 ML IH SCH ×2 (06:23→10:25)
[2017-04-05 06:33] LABS: Eosinophils % 0.3 %; Hematocrit 27.7 % (37.5-50.1); Hemoglobin 7.6 g/dL (12.9-16.9); Immature Granulocytes % 0.5 % (0-4); Lymphocytes # 0.7 K/mcL (0.6-4.6); Mean Corpuscular HGB Conc 27.4 g/dL (31.6-35.5); Mean Corpuscular Hemoglobin 25.9 pg (28.0-33.3); Mean Corpuscular Volume 94.5 fL (83.0-100.0); Monocytes # 0.3 K/mcL (0.0-1.3); Monocytes % 9.1 %; Neutrophils # 2.7 K/mcL (1.6-8.9); Platelet Count 111 K/mcL (140-400); Red Blood Count 2.93 M/mcL (4.19-5.50); Red Cell Distribution Width 17.1 % (11.5-14.5); Segmented Neutrophils % 72.1 %
[2017-04-05] MEDS: *HR* Heparin 5,000 UNIT/ML VIAL SQ SCH (06:34)
[2017-04-05 06:39] LABS: BUN/Creatinine Ratio 22 (6-26); Blood Urea Nitrogen 14 mg/dL (8-26); Calcium 9.2 mg/dL (8.6-10.8); Chloride 91 mEq/L (98-109); Glucose 116 mg/dL (70-99); Magnesium 1.5 mg/dL (1.6-2.6); Osmolality,Calculated 295 (280-300); Potassium 4.2 mEq/L (3.5-4.5); Sodium 142 mEq/L (136-145); eGFR For African Americans > 60 (> 60); eGFR For Non-African Americans > 60 (> 60)
[2017-04-05 06:45] LABS: Carbon Dioxide 45 mEq/L (19-29)
[2017-04-05 07:09] LABS: Anisocytosis 1+ (Not Present); Hypochromasia Present (Not Present); Platelet Estimate Slight Decrease (Normal)
[2017-04-05] MEDS: Levofloxacin 500 MG/100 ML 500 MG/100 ML BAG IVPB SCH (07:59)
[2017-04-05] MEDS: Metoprolol 100 MG TABLET PO SCH (08:00)
[2017-04-05] MEDS: Nicotine 7 MG PATCH.TD24 TD SCH (08:00)
[2017-04-05] MEDS: Spironolactone 25 MG TABLET PO SCH (08:00)
[2017-04-05] MEDS: MethylPREDNISolone 40 MG/ML VIAL IVP SCH (08:01)
[2017-04-05] MEDS: Furosemide 40 MG TABLET PO SCH (08:01)
[2017-04-05] MEDS: Finasteride 5 MG TABLET PO SCH (08:01)
[2017-04-05 08:41] LABS: ABG Base Excess 26.5 mEq/L (-2.0 to 3.0); ABG HCO3 56 mEq/L (21-27); ABG Oxygen Saturation 96 % (95-98); ABG PH 7.37 pH Units (7.32-7.45); ABG PO2 82 mmHg (85-104); ABG TCO2 58.4 mEq/L (20-26)
[2017-04-05 08:43] LABS: ABG PCO2 96 mmHg (35-45); Blood Gas Liter Flow 4 L/MIN
[2017-04-05 08:44] LABS: Blood Gas FiO2 36 %
[2017-04-05] MEDS: *HR* OxyCODONE Immed Rel 5 MG TABLET PO PRN (08:52)
[2017-04-05] MEDS: Budesonide/Formoterol 160/4.5 MDI IH SCH (10:25)
[2017-04-05 10:47] VITALS: BP 98/56
[2017-04-05 11:58] LABS: ABG Base Excess 26.2 mEq/L (-2.0 to 3.0); ABG HCO3 54 mEq/L (21-27); ABG Oxygen Saturation 96 % (95-98); ABG PH 7.44 pH Units (7.32-7.45); ABG PO2 78 mmHg (85-104); ABG TCO2 56.1 mEq/L (20-26)
[2017-04-05 12:01] LABS: ABG PCO2 79 mmHg (35-45); Blood Gas FiO2 35 %
--- NOTE | 2017-04-05 12:43 | Discharge Summary ---
Date of Encounter: 04/05/17 Time of Encounter: 12:31 - Discharge Diagnosis (1) Acute on chronic respiratory failure with hypoxemia Priority: Primary Status: Acute (2) Acute on chronic respiratory failure with hypercapnia Priority: Primary Status: Acute (3) Sepsis Priority: Primary Status: Acute Qualifiers: Sepsis type: sepsis due to unspecified organism Qualified Code(s): A41.9 - Sepsis, unspecified organism (4) Pneumonia Priority: Primary Status: Acute Qualifiers: Pneumonia type: due to unspecified organism Laterality: right Lung location: upper lobe of lung Qualified Code(s): J18.1 - Lobar pneumonia, unspecified organism (5) Acute exacerbation of chronic obstructive airways disease Priority: Primary Status: Acute (6) Combined systolic and diastolic heart failure Priority: Secondary Status: Chronic Qualifiers: Heart failure chronicity: chronic Qualified Code(s): I50.42 - Chronic combined systolic (congestive) and diastolic (congestive) heart failure (7) HTN (hypertension) Priority: Secondary Status: Chronic Qualifiers: Hypertension type: essential hypertension Qualified Code(s): I10 - Essential (primary) hypertension (8) CAD (coronary artery disease) Priority: Secondary Status: Chronic Qualifiers: Coronary Disease-Associated Artery/Lesion type: [place] artery [place] vs. transplanted heart: [place] heart Associated angina: without angina Qualified Code(s): I25.10 - Atherosclerotic heart disease of [place] coronary artery without angina pectoris - Discharge Medications Home Medications: Albuterol Sulfate [Ventolin Hfa] 2 puff IH Q4HR PRN 01/30/17 [History] Atorvastatin [Lipitor] 40 mg PO HS 01/30/17 [History] Cetirizine HCl [Zyrtec] 10 mg PO DAILY 01/30/17 [History] DULoxetine [Cymbalta] 30 mg PO DAILY 01/30/17 [History] Ferrous Sulfate [Iron] 325 mg PO TID 01/30/17 [History] Finasteride [Proscar] 5 mg PO DAILY 01/30/17 [History] Fluticasone/Salmeterol [Advair 500-50 Diskus] 1 puff IH BID 01/30/17 [History] Guaifenesin [Mucinex] 600 mg PO BID PRN 01/30/17 [History] Ipratropium/Albuterol Neb [Duoneb] 3 ml IH Q6HR 01/30/17 [History] Lisinopril 2.5 mg PO DAILY 01/30/17 [History] Omeprazole 20 mg PO DAILY 01/30/17 [History] Oxycodone HCl 10 mg PO Q4H PRN 01/30/17 [History] Oxygen 5 l NS AD 01/30/17 [History] Pregabalin [Lyrica] 100 mg PO BID 01/30/17 [History] Primidone [Mysoline] 250 mg PO BID 01/30/17 [History] Roflumilast [Daliresp] 500 mcg PO DAILY 01/30/17 [History] Ropinirole HCl [Requip] 2 mg PO HS 01/30/17 [History] Tamsulosin [Flomax] 0.8 mg PO DAILY 01/30/17 [History] Spironolactone [Aldactone] 12.5 mg PO DAILY #0 01/31/17 [Rx] Tizanidine HCl [Zanaflex] 4 mg PO BID PRN #0 01/31/17 [Rx] Metoprolol [Lopressor] 100 mg PO TID #90 tablet 02/14/17 [Rx] Rivaroxaban [Xarelto] 20 mg PO DAILY #30 tablet 02/14/17 [Rx] Furosemide [Lasix] 40 mg PO BID 04/02/17 [History] levoFLOXacin [Levaquin] 500 mg PO Q24H #4 tab 04/05/17 [Rx] predniSONE [PredniSONE] 40 mg PO DAILY #30 tablet 04/05/17 [Rx] Allergies/Adverse Reactions: 3 Allergy/AdvReac Type Severity Reaction Status Date / Time No Known Allergies Allergy Verified 04/01/17 21:55 Date of admission: 04/02/17 06:45 Primary care physician: PCP NONE - Patient Status Disposition: Home Health Service Condition: Fair Overall status at discharge: patient is back to baseline - Discharge Instructions Follow Up With: NONE,PCP [Primary Care Provider] - Aba Reveles MD [Partnered Physician] - Additional Instructions: Please use BiPAP as needed during day time and continuous at night time also you do need skilled nursing prednisone therapy.. So I gave a rx for tapering dose steroids starting from Prednisone 40mg tapering it down to Prednisone 10mg PO daily continuously until you see your PCP and Nurse Receptionist - Diet and Activity Activity: increase activity as tolerated, wear oxygen at all times Diet: low salt diet Hospital course: Mr. Romo is a 62 year old male with prior medical history of COPD, CHF, CAD , and hypertension who presents to [facility] from [place] [facility] after undergoing intubation. Patient intubated at the time of assessment, history obtained through chart review. Patient presented to [place] [facility] in respiratory distress, complaining of difficulty breathing, and stating the cough productive of thick mucus. ABG performed without time showed acute on chronic respiratory failure with some metabolic compensation, he was placed on BiPAP at that time. ABG was drawn after trial of BiPAP that showed worsening of patient pH and PCO2. At that time he underwent intubation due to failure of BiPAP and was transferred to [place]. Pt was admitted to ICU initially. And started him on high dose IV steroids and IV Abx. He got extubated on 04/03/17 and placed him on BiPAP which he has been tolerated well so far. He still has moderate SOB and TY , however pt stated this his baseline. He wanted to go home, [facility] OT or close [facility]. He does have BiPAP at home, will change his BiPAP settings to 20/8 since his PCo2 improved with above settings. Today Pt is alert, awake and O x3. Denied any CP. Will contact his BiPAP provider to update the new BiPAP settings. Pt is so adamant to stay in the hospital for another day until we titrate his BiPAP settings, he decided to leave [facility] if we do not send him home today. Due to his chronic respiratory failure will provide him all the discharge instructions and medications. - Time Spent with Patient Total time spent providing and/or coordinating discharge services: Greater than 30 minutes (Spent 45 minutes on this patient's discharge summary due to complex medical problems and patient needed a lot of education regarding discharge instructions) - Constitutional Vitals: Temp Pulse Resp BP Pulse Ox 97.1 F L 64 18 98/56 99 04/05/17 10:43 04/05/17 10:43 04/05/17 10:43 04/05/17 10:43 04/05/17 10:43 General appearance: Present: A&O X 3, answers questions appropriately - Head Head exam: Present: atraumatic, normal inspection - Respiratory Respiratory exam: Present: decreased breath sounds, wheezes (moderate). Absent : rales, respiratory distress, rhonchi - Cardiovascular Cardiovascular exam: Present: RRR, +S1, +S2. Absent: diastolic murmur, gallop, rubs, systolic murmur - GI/Abdominal GI/Abdominal exam: Present: normal bowel sounds, soft, no peritoneal signs. Absent: distended, tenderness - Extremities Exam Extremities exam: Absent: calf tenderness, pedal edema, tenderness - Neurological Exam Neurological exam: Present: alert, oriented X3 - Psychiatric Psychiatric exam: Present: normal affect, normal mood
--- NOTE | 2017-04-05 12:54 | Physician Discharge Referral ---
Home Health/Hosp Referral Info Transfer to: Home Health Provider in Charge Post Discharge: PCP - Diagnosis (1) Acute on chronic respiratory failure with hypoxemia Status: Acute (2) Acute on chronic respiratory failure with hypercapnia Status: Acute (3) Sepsis Status: Acute (4) Pneumonia Status: Acute (5) Acute exacerbation of chronic obstructive airways disease Status: Acute (6) Combined systolic and diastolic heart failure Status: Chronic (7) HTN (hypertension) Status: Chronic (8) CAD (coronary artery disease) Status: Chronic - Respiratory Orders Smoking Cessation: Smoking cessation has been advised. For more information, call the [place] Tobacco Quit Line at 0-143-KHOE-NOW. - Services Needed Following services are medically necessary services: Nursing, Physical Therapy, Occupational Therapy - Transfer Medications Prescriptions: predniSONE [PredniSONE] 40 mg PO DAILY #30 tablet Home Medications: Albuterol Sulfate [Ventolin Hfa] 2 puff IH Q4HR PRN 01/30/17 [History] Atorvastatin [Lipitor] 40 mg PO HS 01/30/17 [History] Cetirizine HCl [Zyrtec] 10 mg PO DAILY 01/30/17 [History] DULoxetine [Cymbalta] 30 mg PO DAILY 01/30/17 [History] Ferrous Sulfate [Iron] 325 mg PO TID 01/30/17 [History] Finasteride [Proscar] 5 mg PO DAILY 01/30/17 [History] Fluticasone/Salmeterol [Advair 500-50 Diskus] 1 puff IH BID 01/30/17 [History] Guaifenesin [Mucinex] 600 mg PO BID PRN 01/30/17 [History] Ipratropium/Albuterol Neb [Duoneb] 3 ml IH Q6HR 01/30/17 [History] Lisinopril 2.5 mg PO DAILY 01/30/17 [History] Omeprazole 20 mg PO DAILY 01/30/17 [History] Oxycodone HCl 10 mg PO Q4H PRN 01/30/17 [History] Oxygen 5 l NS AD 01/30/17 [History] Pregabalin [Lyrica] 100 mg PO BID 01/30/17 [History] Primidone [Mysoline] 250 mg PO BID 01/30/17 [History] Roflumilast [Daliresp] 500 mcg PO DAILY 01/30/17 [History] Ropinirole HCl [Requip] 2 mg PO HS 01/30/17 [History] Tamsulosin [Flomax] 0.8 mg PO DAILY 01/30/17 [History] Spironolactone [Aldactone] 12.5 mg PO DAILY #0 01/31/17 [Rx] Tizanidine HCl [Zanaflex] 4 mg PO BID PRN #0 01/31/17 [Rx] Metoprolol [Lopressor] 100 mg PO TID #90 tablet 02/14/17 [Rx] Rivaroxaban [Xarelto] 20 mg PO DAILY #30 tablet 02/14/17 [Rx] Furosemide [Lasix] 40 mg PO BID 04/02/17 [History] levoFLOXacin [Levaquin] 500 mg PO Q24H #4 tab 04/05/17 [Rx] predniSONE [PredniSONE] 40 mg PO DAILY #30 tablet 04/05/17 [Rx] Allergies/Adverse Reactions: 3 Allergy/AdvReac Type Severity Reaction Status Date / Time No Known Allergies Allergy Verified 04/01/17 21:55 Certification: Further, I certify that my clinical findings support that this patient is homebound (i.e. absences from home require considerable and taxing effort and are for medical reasons or nondenominational services or infrequently or short duration when for other reasons) because: Homebound Reason: Patient requires assistance of a person or device to safely leave home Attestation: My signature below is to certify that this patient is under my care and that I, or nurse practitioner, or a physician's investment sales assistant working with me, has a face-to -face encounter with this patient.
[2017-04-05] MEDS ORDERED: Aminoglycoside Consult 1 EACH MC ONE (14:44)
[2017-04-06] MEDS ORDERED: levoFLOXacin 500 MG TABLET PO SCH (07:00)
== END 2017-04-05 14:45 | disposition home or self-care (01) | DRG 871 ==
LOC: ICNU → 2ANU 04-03 22:00
PROVIDERS: ADMIT Internal Medicine; ATTEND Hospitalist